=== PATIENT | female | born 1995 | race Caucasian/White ===

== ENCOUNTER 2017-12-01 10:50 | Day surgery (SDC) | payer OTHER, SELFPAY ==
[2017-11-30 09:01] VITALS: BMI 32.5
[2017-12-01] VITALS (10 sets, daily range): BP systolic 90–134; BP diastolic 50–78; PULSE 82–112; RESP 13–17; TEMP 36–36.7; O2SAT 92–100; BMI 32.5
--- NOTE | 2017-12-01 | PATH_ITS ---
[facility] Accession Number: [id number] . 01 Material submitted: . RIGHT INNER THIGH . 02 Diagnosis: Mass, Right Inner Thigh: Lipoma, negative for atypia. [facility] [place]12[place]03/[place] . 02 Electronically signed: . Luis Enrique Townsend MD, Pathologist NPI- [id number] . 01 Gross description: . Received in formalin, labeled right inner thigh lipoma, are multiple pieces of hidalgo-yellow rubbery adipose tissue (5.0 x 2.5 x 1.5 cm in aggregate) with homogenous unremarkable cut surfaces. The tissue is inked black. Casework Manager slice is submitted in cassettes A1 and A2. ([id number]) /[facility] . 02 Pathologist provided ICD-10: D17.23 . 02 CPT . 044571 Performed at: 01 [facility] [address] [id number] MD Jeramy Mijares MD Phone: [phone] Performed at: 02 [facility] [address] [place], [place] [id number] MD Lee Novoa MD Phone: [phone]
[2017-12-01] MEDS: LACTATED RINGERS 1,000 ML 42 ML IV (11:42)
[2017-12-01] MEDS: CEFAZOLIN 2 GM/100 ML FROZ.PIGGY IV (11:44)
--- NOTE | 2017-12-01 12:09 | SUR.OPER ---
Supine on padded OR bed, head on pillow, arms secured on padded arm boards at <90 degrees abduction, legs uncrossed, safety belt at thigh, tape over blanket over lower legs.
[2017-12-01] MEDS: LIDOCAINE 1% W/EPI INJ 20 ML INJ (12:14)
[2017-12-01] MEDS: BUPIVACAINE 0.5% (PF) 30 ML VIAL INJ (12:15)
--- NOTE | 2017-12-01 13:05 | PM.OP.1 ---
Operative Date/Time/Diagnoses - Date of procedure: 12/01/17 Time of procedure: 13:05 Pre-op diagnosis: Painful and enlarging right thigh lipoma Post-op diagnosis: same Procedure & Clinicians Procedure: Excision of proximal right thigh lipoma and dermal inclusion cyst Same procedure as scheduled: Yes Indications: Painful and enlarging right thigh lipoma Surgeon: Jazzy Cisneros Anesthesia Type: General (Kotlarczyk) Operative Notes Findings: 3 cm lipoma of the posterior medial right thigh 1 cm dermal inclusion cyst Closure Type: primary Estimated Blood Loss (mL): 10 Procedure in detail: After obtaining informed consent, the patient is brought to the operating room and placed in supine position on the operating table. Following successful induction of general endotracheal anesthesia, appropriate padding of all bony prominences, and placement of appropriate monitors, the right leg was placed in the frogleg position with gel supports medially and laterally to prevent hyper extension. The right groin and posterior thigh are prepped and draped in the standard surgical fashion. A time-out was held per SCOAP protocol. Following infiltration with local anesthetic to create a field block, a horizontal incision was created directly over the palpable lipoma. It was carried down through the skin and subcutaneous tissue. The lipoma was palpated and pushed into the field. It was grasped gently with a Dilan clamp and the neurovascular pedicle was divided using Bovie cautery. The wound was checked for hemostasis and irrigated with warm saline. A prominent dermal lump was noted just anterior to the lipoma. The could be consistent with both a 2nd lipoma or a dermal inclusion cyst. A elliptical incision was created directly over the lump carried down through the skin and subcutaneous tissue. The entire lesion was excised in total and passed from the table as a specimen. Both wounds were checked for hemostasis once again and closed in layers with Vicryl and Monocryl sutures. All sponge, needle, and instrument counts were correct at the conclusion of the case. The patient was allowed to wake from anesthesia without difficulty and taken to the postanesthesia care unit in good condition. Complications: none Condition: stable Disposition: PACU Plan for aftercare: 1. Discharge to home 2. Follow up with me in 2 weeks
[2017-12-01] MEDS: OXYCODONE IR 5 MG TABLET PO (13:43)
--- NOTE | 2017-12-01 14:45 | SUR.PHASEII ---
patient reports HR of greater than 100 at baseline. States she takes adderall and has anxiety, both have been contributing factors. PCM aware. Pt denies dizziness, lightheadedess, racing HR. DC hr 104bpm
== END 2017-12-01 14:40 | disposition home or self-care (01) ==
PROVIDERS: PCP Family Medicine; Visit Provider Surgery
PROC: (CPT 11403; principal; 2017-12-01 13:15)
DX: L72.0 Epidermal cyst (principal); Z87.891 Personal history of nicotine dependence
CPT/HCPCS: 11403; 11401; J0690; J1100; J2250; J2405; J2704; J3010

== ENCOUNTER 2020-03-18 19:29 | Emergency (ER) | payer OTHER, SELFPAY ==
[2020-03-18] VITALS (7 sets, daily range): BP systolic 120–146; BP diastolic 64–87; PULSE 82–96; RESP 20; TEMP 36.4; O2SAT 97–99
--- NOTE | 2020-03-18 19:38 | PC.NURSE ---
Poison control contacted. Spoke to Placido Barrera-- advised
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
[2020-03-18] MEDS: TETRACAINE/BENZOCAINE/BUTAMBEN (CETACAINE) BOTTLE 1 SPRAY TOP (21:19)
== END 2020-03-18 21:35 | disposition home or self-care (01) ==
PROVIDERS: Emergency Provider Nurse Practitioner; PCP Family Medicine
DX: T59.811A Toxic effect of smoke, accidental (unintentional), initial encounter (principal)
CPT/HCPCS: 71046; 99283

== ENCOUNTER → 2021-01-17 06:51 | Outpatient (CLI) | payer OTHER, SELFPAY ==
[2021-01-17 09:32] LABS: Glucose Fasting 91 mg/dL (70-100)
[2021-01-17 09:39] LABS: Glucose 1 Hour 159 mg/dL (70-170)
[2021-01-17 10:15] LABS: Glucose Tol Interpretation INTERPRETATION
[2021-01-17 10:31] LABS: Glucose 2 Hour 181 mg/dL (70-140)
[2021-01-17 11:27] LABS: Glucose 3 Hour 137 mg/dL (70-115)
== END ==
PROVIDERS: PCP Family Medicine; Referring Provider Nurse Practitioner Obstetrics & Gynecology; Visit Provider Nurse Practitioner Obstetrics & Gynecology
DX: Z13.1 Encounter for screening for diabetes mellitus (principal)
CPT/HCPCS: 36415; 82951; 82952

== ENCOUNTER → 2021-01-24 09:07 | Outpatient (CLI) | payer OTHER, SELFPAY ==
--- NOTE | 2021-01-24 | DI.US.S_ITS ---
PROCEDURE: US OB >= 14 WEEKS FETUS INDICATIONS: 20 WEEK ANATOMY OUTSIDE/PRIOR DATING DATA: Last menstrual period (LMP): 09/02/2020. LMP-based estimated date of delivery (JAY): 06/09/2021 . First dating scan (date and location): 01/24/2021 . Estimated date of delivery (JAY) from first dating scan: 06/08/2021 . TECHNIQUE: Real-time scanning was performed of the fetus, with image documentation and biometric measurements. Endovaginal scanning: No COMPARISON: None. FINDINGS: General: A single living intrauterine gestation is present. Presentation: Vertex. Placenta: Placental position is posterior , without previa. Amniotic fluid index: 13.8 cm, normal range is 5-24 cm. heart rate: 160 beats per minute. Maternal cervical canal: 3.3 cm long. Normal lower limit is 2.5 cm. biometrics: Biparietal diameter: 20 weeks 3 days Head circumference: 20 weeks 6 days Abdominal circumference: 20 weeks 6 days Femur length: 20 weeks 6 days Estimated gestational age from initial scan: not applicable. Composite gestational age from present scan: 20 weeks 5 days Estimated weight and percentile: 380 g; 68th percentile Measurement variability for biometric dating: +/- 7 days from 14 weeks to 15 weeks 6 days gestation, +/- 10 days from 16 weeks to 21 weeks 6 days gestation, +/- 2 weeks from 22 weeks to 27 weeks 6 days gestation, +/- 3 weeks for 28 weeks gestation or later. weight reference: 4500 g or EFW >90/95% is considered macrosomia or large for gestational age. EFW <10% is small for gestational age. EFW 5% or less is considered intra-uterine growth restriction. Anatomic survey: Neuro: Ventricles are non-dilated at less than 10 mm. Cisterna magna is normal at 3-11 mm. Cerebellum is normal in size and morphology. Nuchal skin fold: Normal at less than 6 mm between 14-21 weeks gestational age. Face: Nose and lips, facial profile are normal. Spine: No evidence for spina bifida. Heart: 4-chambered heart is present, with normal ventricular outflow tracts. Diaphragm: Diaphragm is intact. Stomach: Left-sided stomach is present. Kidneys: No hydronephrosis. Normal is less than 5 mm in 2nd trimester, less than 7 mm in 3rd trimester. Cord: 3-vessel cord has orthotopic insertion. Bladder: Normal in size. Extremities: All 4 extremities identified. IMPRESSION: 1. 20 week 5 day single living IUP corresponding to ultrasound JAY of 06/08/2021. 2. Normal anatomic survey. Dictated by: Robert MORAELS Interpreted: Chuy Leavitt MD on 01/24/2021 at 11:39 Transcribed by: YUE on 01/24/2021 at 11:41 Approved by: Chuy Leavitt M.D. on 01/24/2021 at 12:06
== END ==
PROVIDERS: PCP Family Medicine; Referring Provider Nurse Practitioner Obstetrics & Gynecology; Visit Provider Nurse Practitioner Obstetrics & Gynecology
DX: Z3A.20 20 weeks gestation of pregnancy; Z36.89 Encounter for other specified antenatal screening
CPT/HCPCS: 76811

== ENCOUNTER → 2021-03-14 08:34 | Outpatient (CLI) | payer OTHER, SELFPAY ==
[2021-03-14 09:15] LABS: Hematocrit 35.5 % (36-46); Hemoglobin 11.8 g/dL (12.0-16.0); Mean Corpuscular HGB Conc 33.3 % (30-36); Mean Corpuscular Hemoglobin 29.2 PG (26-34); Mean Corpuscular Volume 87.8 fL (80-100); Platelet Count 297 X10^3/uL (150-400); Red Blood Cell Count 4.04 X10^6/uL (4.0-5.2); Red Cell Distribution Width 13.6 % (11.6-14.8); White Blood Cell Count 14.2 X10^3/uL (4.5-11.0)
[2021-03-14 09:57] LABS: Glucose Fasting 97 mg/dL (70-100)
[2021-03-14 11:50] LABS: Glucose 2 Hour 152 mg/dL (70-140)
[2021-03-14 12:00] LABS: Glucose 1 Hour 175 mg/dL (70-170)
[2021-03-14 14:38] LABS: Glucose 3 Hour 98 mg/dL (70-115); Glucose Tol Interpretation INTERPRETATION
== END ==
PROVIDERS: PCP Family Medicine; Referring Provider Nurse Practitioner Obstetrics & Gynecology; Visit Provider Nurse Practitioner Obstetrics & Gynecology
DX: Z34.90 Encounter for supervision of normal pregnancy, unspecified, unspecified trimester (principal); Z13.1 Encounter for screening for diabetes mellitus; Z3A.26 26 weeks gestation of pregnancy
CPT/HCPCS: 36415; 82951; 82952; 85027

== ENCOUNTER → 2021-05-14 14:50 | Outpatient (ROUT) | payer OTHER, SELFPAY | PROVIDERS: PCP Family Medicine; Visit Provider Nurse Practitioner Obstetrics & Gynecology | DX: Z34.90 Encounter for supervision of normal pregnancy, unspecified, unspecified trimester (principal); Z36.85 Encounter for antenatal screening for Streptococcus B; Z3A.36 36 weeks gestation of pregnancy | CPT/HCPCS: 87081 ==

== ENCOUNTER 2021-05-17 11:32 | Inpatient (IN) | payer OTHER, SELFPAY ==
[2021-05-17 11:44] VITALS: BP 127/73; PULSE 72; RESP 20; TEMP 37
--- NOTE | 2021-05-17 12:11 | P.HPOB_ITS ---
OB HPI Date/Time Date of admission: 05/17/21 Date Patient Seen: 05/17/21 Time Patient Seen: 12:00 History of Present Condition Chief complaint: Eval of Labor : 1 Para: 0 Estimated Date of Delivery: 06/11/21 Estimated Gestational Age (weeks): 36.3 Narrative: Priya Goodman is a 25 year old at 36 weeks 3 days by sure LMP, IUI date 09/13/20 and concordant early US. Here for evaluation of labor. PPROM on 05/16 at 2315, clear fluid. No vaginal bleeding, fever/chills, or regular, painful contractions overnight. Feels regular movement. Desires low intervention, unmedicated . course significant for history of insulin restistance, on metformin prior to pregnacy, normal 3 hr GTT @ 16 and 26weeks. Otherwise uncomplicated care with CNM. Indications Indication for induction OB: other (PPROM) History of Present care: good care, initiated at week # (9), number of visits (8) and pounds weight gain (8) Dating criteria: LMP confirmed by 1st trimester US Ultrasounds: normal 1st trimester US and normal mid trimester US Obstetrical complications: labor Medical complications: psychiatric (Depression, Anxiety, ADHD on Adderall) Preadmission Labs Blood type: O (+) positive -: Antibody screen: negative, Cystic fibrosis screen: negative, GBS status: negative, HBsAG: negative, HIV: negative and RPR/VDLR: negative -: Rubella: not immune HCT: 35.5 HCAB: negative PAP: Normal Cell-free DNA: negative, female 3 hr GTT: 1 hr (175), 2 hr (152) and 3 hr (98) Fasting blood glucose: 97 Evaluation Evaluation Baseline heart rate: 145 Variability: Moderate (11-25) monitor accelerations: Present Monitor Decelerations: Absent Contraction Frequency (minutes): 1 Uterine Contraction Intensity: Mild Status: Category l Dilation (cm): 2.5 Dilation: 1-2 cm Effacement: 60-70% station: -3 Position of cervix: posterior Consistency: soft Oseguera score: 5 Comments: CE deferred, reported from last CE in office, gross ROM PFSH Medical History (Updated 05/17/21 @ 13:57 by Amber Aj CNM) ADHD Anxiety Depression Headache Surgical History [place] teeth removed Family History Grandmother Diabetes mellitus Father Hyperlipidemia Sister Thyroid disease Social History (Updated 05/17/21 @ 13:15 by Amber Aj CNM) marital status: number of children: 0 household members: spouse occupational status: employed Smoking Status: Former smoker alcohol intake: former Meds Home Medications and Allergies Home Medications Medication Instructions Recorded Confirmed Type dextroamphetamine-amphetamine ER 15 mg PO 4XW cap 11/23/17 05/17/21 History 30 mg 24hr capsule,extend release (Adderall XR) PNV Folic Acid + Iron 1 tab PO DAILY 05/17/21 05/17/21 History Vitamin D3 10,000 units PO DAILY 05/17/21 05/17/21 History metformin 500 mg tablet,extended 500 mg PO TID 05/17/21 05/17/21 History release 24 hr sertraline 100 mg tablet 100 mg PO DAILY 05/17/21 05/17/21 History Allergies Allergy/AdvReac Type Severity Reaction Status Date / Time pineapple Allergy Verified 05/17/21 12:55 Review of Systems Review of Systems ROS: Yes All systems reviewed with the patient and are negative except as otherwise documented OB Exam Narrative Exam Narrative: VS: BP 133/84, T 99.4F, HR 91 bpm Resp Effort & Inspection: normal respiratory effort Auscultation: clear to auscultation bilaterally Cardio Rate: regular rate Rhythm: regular rhythm Heart Sounds: S1 normal and S2 normal Extremities Lower extremity: Yes normal to inspection Presentation: vertex Amniotic Fluid: clear Objective Labs Result Diagrams: 05/17/21 12:30 Assessment and Plan Assessment and Plan Assessment and Plan narrative: A: Late nullipara Active management of PPROM SROM/PPROM, clear fluid x 13 hours without signs/symptoms of infection No indication for GBS prophylaxis Cat I FHT P: Admit to hospital with routine orders and induction/augmentation of labor with Pitocin per protocol. OB backup consulted and in agreement with CN management for labor. [facility] Peds provider notified of 36wk PPROM, will notify peds upon delivery, peds to admit for . Encourage ambulation, position changes, and rest PRN. Reassess in 4 hours or sooner PRN. Plan CE 2 hours after strong contractions.
[2021-05-17] MEDS: OXYTOCIN PREMIX 30 UNIT/500 ML PLAST..BAG IV (12:40)
[2021-05-17] MEDS: LACTATED RINGERS 1,000 ML 100 ML IV ×2 (12:42→23:20)
[2021-05-17 12:43] LABS: Add Manual Diff / Slide Review NO; Basophils Absolute Auto 100 /uL (0-100); Basophils Percent Auto 1.3 % (0-2); Eosinophils Absolute Auto 100 /uL (0-450); Hematocrit 35.3 % (36-46); Hemoglobin 11.7 g/dL (12.0-16.0); Lymphocytes Absolute Auto 2100 /uL (1100-4500); Lymphocytes Percent Auto 17.8 % (25-40); Mean Corpuscular HGB Conc 33.1 % (30-36); Mean Corpuscular Hemoglobin 28.9 PG (26-34); Mean Corpuscular Volume 87.2 fL (80-100); Monocytes Absolute Auto 900 /uL (0-900); Monocytes Percent Auto 7.2 % (3-14); Neutrophils Absolute Auto 8700 /uL (1500-7000); Neutrophils Percent Auto 72.7 % (50-75); Platelet Count 208 X10^3/uL (150-400); Red Blood Cell Count 4.05 X10^6/uL (4.0-5.2); Red Cell Distribution Width 13.8 % (11.6-14.8); White Blood Cell Count 11.9 X10^3/uL (4.5-11.0)
[2021-05-17 13:10] LABS: COVID19 -Nasal RAPID Negative (Negative)
[2021-05-17 15:41] VITALS: BP 138/86
[2021-05-17 17:22] VITALS: BP 153/95; PULSE 86
[2021-05-17] MEDS: LABETALOL 20 MG/4 ML SYRINGE 10 MG IV (17:22)
--- NOTE | 2021-05-17 17:22 | PM.OBPNLAB ---
Date/Time Date Patient Seen: 05/17/21 Time Patient Seen: 17:00 Pain Control Pain control: tolerating well (breathing through regular contractions, pain is all low in front) Comments: VS: severe range BPs x 10 minutes (166/93, 160/98, 160/99, 162/100), now 130/77, HR 80bpm, T 98.2F Temporal Pelvic Exam Dilation (cm): 5 Effacement (%): 80 station: -1 Amniotic membrane status: Leaking (clear) Contractions Date/Time contractions began: contraction present upon admission, but mild stronger contractions started at 1500 Monitor mode: External Pitocin rate (mU/min): 11 Contraction frequency (min): 2 Contraction duration (min): 1 Contraction pattern: Regular Contraction intensity: Moderate Status status: Category l Heart Rate Baseline: 150 Monitor Accelerations: Present Monitor Decelerations: Absent Monitor Variability: Moderate Assessment and Plan Assessment: active labor (PPROM x 18 hours thout sx of infection, Severe range BP) Plan: other (Consulted for elevated BPs-> Preeclampsia panel ordered and labetalol 10mg IV given) Comments: Continue pitocin titration, per protocol. Labor support, PRN. BP now stable, will call once labs are resulted. Reassess in 2-4 hours or sooner, PRN.
[2021-05-17 18:27] LABS: Add Manual Diff / Slide Review NO; Basophils Absolute Auto 100 /uL (0-100); Basophils Percent Auto 0.9 % (0-2); Eosinophils Absolute Auto 100 /uL (0-450); Eosinophils Percent Auto 0.7 % (2-4); Hematocrit 35.9 % (36-46); Hemoglobin 12.1 g/dL (12.0-16.0); Lymphocytes Absolute Auto 2600 /uL (1100-4500); Lymphocytes Percent Auto 20.8 % (25-40); Mean Corpuscular HGB Conc 33.8 % (30-36); Mean Corpuscular Hemoglobin 29.1 PG (26-34); Mean Corpuscular Volume 86.1 fL (80-100); Monocytes Absolute Auto 800 /uL (0-900); Monocytes Percent Auto 6.9 % (3-14); Neutrophils Absolute Auto 8700 /uL (1500-7000); Neutrophils Percent Auto 70.7 % (50-75); Platelet Count 208 X10^3/uL (150-400); Red Blood Cell Count 4.17 X10^6/uL (4.0-5.2); White Blood Cell Count 12.3 X10^3/uL (4.5-11.0)
[2021-05-17 18:35] LABS: Aspartate Aminotransferase 19 IU/L (14-36); BUN Creatinine Ratio 26.9 (6-22); Blood Urea Nitrogen 14 mg/dL (7-17); Estimated Glomerular Filt Rate > 60.0 mL/min (>60); Uric Acid 5.6 mg/dL (2.5-6.2)
[2021-05-17 18:53] LABS: Creatinine Urine Random 141.9 mg/dL; Protein (Total) Urine Random 8 mg/dL (0-12); Protein Creatinine Ratio Urine 0.05 GRAM/24H
[2021-05-17 19:36] VITALS: BP 154/94; PULSE 84
[2021-05-17] MEDS: LABETALOL 100 MG TABLET 200 MG PO (19:36)
--- NOTE | 2021-05-17 21:10 | PM.OBPNLAB ---
Date/Time Date Patient Seen: 05/17/21 Time Patient Seen: 21:00 Pain Control Comments: Mandie is comfortable, laboring in tub. Coping well through contractions with Jayne present for support. Pelvic Exam Dilation (cm): 6.5 Effacement (%): 90 station: -1 Amniotic membrane status: Leaking (clear) Comments: No signs/symptoms of infection Contractions Monitor mode: External Pitocin rate (mU/min): 19 Contraction frequency (min): 2 Contraction duration (min): 1 Contraction pattern: Regular Contraction intensity: Moderate Status status: Category l Heart Rate Baseline: 150 Monitor Accelerations: Present Monitor Decelerations: Absent Monitor Variability: Moderate Assessment and Plan Assessment: active labor Plan: other (continue current plan; IV Pitocin per protocol and monitor BP) Comments: Pre-eclampsia panel came back negative, reviewed results and plan with OB backup Dr. Dixon. Started labetaolol 200 mg PO q 8 hr. Will continue to monitor BP closely. Labor support as needed, reassess in 4 hours or sooner PRN.
--- NOTE | 2021-05-18 01:15 | PM.OBPNLAB ---
Date/Time Date Patient Seen: 05/18/21 Time Patient Seen: 01:16 Pain Control Pain control: tolerating well Comments: Coping well, though very tired. Has been resting in bed, now planning to walk. VS: BP 138/82, HR 75bpm, T 36.9C Pelvic Exam Dilation (cm): 7 Effacement (%): 90 station: -1 Amniotic membrane status: Leaking (clear) Comments: ELIZABETH position Contractions Monitor mode: External Pitocin rate (mU/min): 19 Contraction frequency (min): 3 Contraction pattern: Regular Contraction intensity: Moderate Status status: Category l Heart Rate Baseline: 135 Monitor Accelerations: Present Monitor Decelerations: Early and Variable Monitor Variability: Moderate Comments: overall reassuring Assessment and Plan Assessment: active labor Plan: continuous present management Comments: Continue pitocin titration to adequte contractions. Encourage movement and ambulation. Reassess in 2-4 hours. Will consider IUPC if minimal change at next check.
--- NOTE | 2021-05-18 03:25 | PM.OBPNLAB ---
Date/Time Date Patient Seen: 05/18/21 Time Patient Seen: 03:00 Pain Control Pain control: tolerating well Comments: Has been ambulating in her room for the last 2 hours, breathing through stronger contractions. VS: BP 140/82, HR 83bpm, T 36.2C Temporal Pelvic Exam Dilation (cm): 8 Effacement (%): 90 station: -1 Amniotic membrane status: Leaking (clear) Contractions Monitor mode: External Pitocin rate (mU/min): 22 Contraction frequency (min): 2 Contraction duration (min): 1 Contraction pattern: Regular Contraction intensity: Moderate Status status: Category l Heart Rate Baseline: 135 Monitor Accelerations: Present Monitor Decelerations: Absent Monitor Variability: Moderate Assessment and Plan Assessment: active labor Plan: continuous present management Comments: Labor support, PRN. Reassess in 2-4 hours, or sooner, PRN.
[2021-05-18 03:46] VITALS: BP 132/66; PULSE 78
[2021-05-18] MEDS: LABETALOL 100 MG TABLET 200 MG PO (03:46)
--- NOTE | 2021-05-18 05:32 | PM.OBPNLAB ---
Date/Time Date Patient Seen: 05/18/21 Time Patient Seen: 05:33 Pain Control Pain control: epidural Comments: Patient progressed to complete and spontaneously pushing, without anesthesia. Requested epidural while pushing on the toilet. Now comfortable with combined spinal/epidural in place. VS: BP 127/68, HR 88, T 36.3C Temporal Pelvic Exam Dilation (cm): 10 Effacement (%): 90 station: +1 Amniotic membrane status: Leaking (clear) Contractions Monitor mode: External Pitocin rate (mU/min): 22 Contraction frequency (min): 3 Contraction duration (min): 1 Contraction pattern: Regular Contraction intensity: Moderate Status status: Category l Heart Rate Baseline: 125 Monitor Accelerations: Present Monitor Decelerations: Absent Monitor Variability: Moderate Assessment and Plan Assessment: active labor Plan: continuous present management Comments: Recommend 30-60 minutes of rest, then begin coached pushing. Anticipate NSVB.
[2021-05-18] MEDS: LACTATED RINGERS 1,000 ML 100 ML IV ×2 (06:31→06:32)
[2021-05-18] MEDS: CALCIUM CARBONATE 500 MG TAB 1000 MG PO (06:45)
--- NOTE | 2021-05-18 08:20 | PM.OBPRVD ---
Events: Labor < 37 wks, Induced HTN, Labor Induction and Premature Rupture Membrane Labor & Delivery Delivery date: 05/18/21 Intrapartal Events: None Cervical ripening method: none Induction method: per pitocin protocol Delivery augmentation: pitocin Delivery monitor: external FHT and external uterine Route of delivery: Episiotomy description: None L&D Laceration Description: Vaginal - 2nd Degree Delivery repair: chromic (3.0) Estimated blood loss (mL): 100 Anesthesia Type: Spinal and Epidural Narrative: Mandie labored in a variety of positions, presumed to be complete with onset of spontaneous pushing efforts at 0400. Requested epidural anesthesia for pain control, cervical exam confirmed complete prior to epidural/spinal anesthesia at 0445. Once comfortable, pushed in a variety of positions with Cat II FHR tracing with late decelerations. RT paged to be present at delivery. NSVB of viable female at 0741. No nuchal cord, shoulders delivered with ease and no additional maneuvers required, terminal meconium noted. IV Pitocin for AMTSL. placed skin to skin for stimulation on maternal abdomen, cord double clamped and cut by SNM after 2 minutes for additional stimulation and assessment. Cord blood collected. Fundus firm, gentle cord traction applied for AMTSL with spontaneous delivery of intact placenta, 3VC. Perineum intact, second degree vaginal laceration repaired with 3.0 Chromic. QBL 100 mL. Mandie and skin to skin and in stable condition as I left the room. [place] Baby 1: gender: Female Presentation: vertex Position: Right Occiput Anterior Placenta delivery description: Spontaneous Cord Vessel Description: 3 Vessels score (1 min): 8 score (5 min): 9 weight: 2.846 kg Narrative: Peds to admit for late Plan for aftercare: Routine care
[2021-05-18] MEDS: DERMOPLAST SPRAY 20% 60 ML 1 SPRAY TOP (10:59)
[2021-05-18] MEDS: KETOROLAC 30 MG/ML VIAL IV (11:00)
[2021-05-18] MEDS: ACETAMINOPHEN 325 MG TABLET 650 MG PO (17:20)
[2021-05-18] MEDS: IBUPROFEN 600 MG TABLET PO (18:45)
[2021-05-19] MEDS: OXYCODONE IR 5 MG TABLET PO (05:09)
[2021-05-19] MEDS: ACETAMINOPHEN 325 MG TABLET 650 MG PO ×3 (05:10→19:57)
[2021-05-19] MEDS: IBUPROFEN 600 MG TABLET PO ×3 (05:11→19:57)
--- NOTE | 2021-05-19 08:18 | PM.OBPN.1 ---
Subjective - OB Subjective Patient comments: pain well controlled [place] baby status: doing well feeding status: exclusively breast feeding Date Patient Seen: 05/19/21 Time Patient Seen: 08:00 Interval history: Mandie is sitting up in bed, attempting to breastfeed her daughter. Has been voiding and ambulating independently. Vaginal bleeding is not heavy. Pain is well controlled with PO medication. , Tania, is present and supportive. Sertraline was missed last night and she went ahead and took her own this morning. They have been struggling to get their baby to wake up and feed last night and this morning. RN currently assisting and IBCLC consultation pending. Exam Vital Signs (past 8 hours): BP 133/81mmHg, HR 76bpm, RR 16/min, T 98.4F Temporal, SpO2 99% on RA Other: Fundus firm @ u, lochia light, no clots, perineum intact Objective Labs Result Diagrams: 05/17/21 18:15 05/17/21 18:15 Assessment & Plan Assessment and Plan (1) Second degree perineal laceration during delivery: Status: Acute Plan day: 1 plan OB: routine care Comments: Will continue to provide support and assistance with throughout the day and reeevaluate. Time Spent With Patient Time: Total time spent is greater than 50% in coordination of care (as documented) at patient's floor/unit and/or counseling patient: Time with patient: 15-24 minutes
[2021-05-19] MEDS: SERTRALINE 50 MG TABLET 150 MG PO (23:12)
[2021-05-20] MEDS: IBUPROFEN 600 MG TABLET PO ×3 (02:05→15:26)
[2021-05-20] MEDS: ACETAMINOPHEN 325 MG TABLET 650 MG PO ×3 (02:05→15:25)
[2021-05-20] MEDS: OXYCODONE IR 5 MG TABLET PO ×3 (02:06→15:26)
--- NOTE | 2021-05-20 08:19 | P.DS_ITS ---
Discharge Providers Provider Date of admission: 05/17/21 11:32 Discharge Date: 05/20/21 Primary care physician: Christian Olmos MD Consults: 05/17/21 11:46 Consult to Anesthesiology Urgent Comment: Consulting Provider: Paulina Bojorquez Reason for consultation: if requested Has provider been notified: No 05/19/21 06:26 Consult to Construction Sales Representative Routine Comment: Discharge provider: Amber Aj CNM Summary Hospital Course Date Patient Seen: 05/20/21 Time Patient Seen: 08:19 Diagnoses: o70.1 Hospital Course: Patient is voiding ambulating and pumping and syringe feeding independently. Pain is well controlled w/ PO medication. She is tolerating a general diet. Vaginal bleeding is decreasing, no clots. Feeling ready for discharge to home today. Has a home BP cuff and feels confident chacking home BPs. Peripartum Data Delivery Method: Natural Vaginal Laceration Description: Vaginal - 2nd Degree Episiotomy description: Midline complications: none [place] 1: Gender: Female Disposition of : home Discharge Diagnosis (1) Second degree perineal laceration during delivery: Start Date: 05/18/21 Start Time: 07:41 Status: Acute (2) Gestational hypertension: Start Date: 05/17/21 Status: Acute Problem Details: consulted in labor and prior to discharge. Plan to check home BPs and call if BP >160 systolic and/or 110 diastolic. Warning sx reviewed with patient and her . Status at Discharge Cognitive/behavioral status at discharge: oriented and calm Functional status at discharge: independent ambulation Overall status at discharge: patient is progressing back to baseline Time Spent with Patient Time attestation: Total time spent providing and/or coordinating discharge services: Time spent: Less than 30 minutes Objective Labs Result Diagrams: 05/17/21 18:15 05/17/21 18:15 Exam Vital Signs (past 8 hours): BP 141/87mmHg, HR 83bpm, T 98.0 Other: Fundus firm @ u, lochia scant, perineum intact Discharge Plan Discharge Plan Patient Disposition: Home Discharge orders & Medications Prescriptions: New acetaminophen 325 mg Tablet 650 mg PO Q6HR PRN (Reason: Pain, Mild (1-3)) 14 Days Qty: 60 0RF ibuprofen 600 mg Tablet 600 mg PO Q6HR PRN (Reason: Pain, Mild (1-3)) 14 Days Qty: 60 0RF oxycodone 5 mg Tablet 5 mg PO Q4HR PRN (Reason: Pain, Moderate (4-6)) 5 Days Qty: 10 0RF sertraline [Zoloft] 50 mg Tablet 150 mg PO BEDTIME 90 Days Qty: 90 0RF Continued dextroamphetamine-amphetamine [Adderall XR] 30 mg capsule,extended release 24hr 15 mg PO 4XW 0RF metformin 500 mg tablet extended release 24 hr 500 mg PO TID 0RF PNV Folic Acid + Iron 1 tab PO DAILY 0RF Vitamin D3 10,000 units PO DAILY 0RF Discontinued sertraline 100 mg tablet 100 mg PO DAILY 0RF Follow up/Referrals: Amber Aj CNM [[employer]] - (Follow-up 06/02/21 @ 0945 by Telehealth Follow-up Wednesday06/30/21 @ 0945 in office) Christian Olmos MD [Primary Care Provider] - Diet/Activity/Treatments Diet: Regular Activity: pelvic rest x 6 weeks Other treatments: Home BPs in am and pm x 2 weeks Skin/Wound/Dressing Care Report to your healthcare provider any signs of infection, such as:: chills, fever, increased pain, unusual drainage and unusual redness Visit Report/Discharge Packet Instructions: Depression Discharge Data Primary Care Provider: Christian Olmos
[2021-05-20 09:20] VITALS: TEMP 36.7
[2021-05-20 09:21] VITALS: TEMP 36.7
[2021-05-20 09:23] VITALS: TEMP 36.7
[2021-05-20 15:26] VITALS: TEMP 36.6
[2021-05-20] MEDS: MEASLES,MUMPS,RUBELLA VACC/PF 0.5 ML VIAL SUBCUT (15:42)
== END 2021-05-20 16:00 | disposition home or self-care (01) | DRG 807 ==
PROVIDERS: Admitting Provider Nurse Practitioner Obstetrics & Gynecology; PCP Family Medicine; Referring Provider Nurse Practitioner Obstetrics & Gynecology; Visit Provider Nurse Practitioner Obstetrics & Gynecology
DX: O60.14X0 Preterm labor third trimester with preterm delivery third trimester, not applicable or unspecified (principal); Z37.0 Single live birth; Z3A.36 36 weeks gestation of pregnancy; O70.1 Second degree perineal laceration during delivery; O77.0 Labor and delivery complicated by meconium in amniotic fluid; O13.4 Gestational [pregnancy-induced] hypertension without significant proteinuria, complicating childbirth; O99.344 Other mental disorders complicating childbirth; F41.9 Anxiety disorder, unspecified; F32.9 Major depressive disorder, single episode, unspecified; O99.284 Endocrine, nutritional and metabolic diseases complicating childbirth; E88.81 Metabolic syndrome and other insulin resistance; Z79.4 Long term (current) use of insulin; Z20.822 Contact with and (suspected) exposure to COVID-19
CPT/HCPCS: 01967; 36415; 59050; 82570; 84156; 84450; 84550; 85025; 86850; 86900; 86901; 87635; C9803; G0379; J1885; J2590

== ENCOUNTER → 2023-10-06 06:54 | Outpatient (CLI) | payer OTHER, SELFPAY ==
[2023-10-06 08:36] LABS: Glucose Fasting 107 mg/dL (70-100)
[2023-10-06 08:51] LABS: Glucose 1 Hour 184 mg/dL (70-170)
[2023-10-06 09:25] LABS: Glucose Tol Interpretation INTERPRETATION
[2023-10-06 10:44] LABS: Glucose 2 Hour 181 mg/dL (70-140)
== END ==
LOC: LAB 06:57
PROVIDERS: PCP Family Medicine; Referring Provider Nurse Practitioner Obstetrics & Gynecology; Visit Provider Nurse Practitioner Obstetrics & Gynecology
DX: Z34.90 Encounter for supervision of normal pregnancy, unspecified, unspecified trimester (principal); Z13.1 Encounter for screening for diabetes mellitus; Z3A.16 16 weeks gestation of pregnancy
CPT/HCPCS: 36415; 82951; 82952

== ENCOUNTER → 2023-11-15 12:37 | Outpatient (CLI) | payer OTHER, SELFPAY ==
--- NOTE | 2023-11-15 12:39 | DI.US.S_ITS ---
PROCEDURE: US OB >= 14 WEEKS FETUS INDICATIONS: ANATOMY SCAN OUTSIDE/PRIOR DATING DATA: Last menstrual period (LMP): June 27, 2023. LMP-based estimated date of delivery (JAY): April 02, 2024. TECHNIQUE: Real-time scanning was performed of the fetus, with image documentation and biometric measurements. Endovaginal scanning: Not performed COMPARISON: None FINDINGS: General: A single living intrauterine gestation is present. Presentation: Vertex. Placenta: Placental position is posterior , without previa. Amniotic fluid index: 14.8 cm, normal range is 5-24 cm. Single deepest vertical pocket is 4.6 cm. heart rate: 160 beats per minute. Maternal cervical canal: 3.8 cm long. Normal lower limit is 2.5 cm. biometrics: Biparietal diameter: 4.4 cm, 19 weeks and 3 days Head circumference: 17.3 cm, 19 weeks and 6 days Abdominal circumference: 13.9 cm, 19 weeks and 2 days Femur length: 3.5 cm, 21 weeks and 0 days Clinically estimated gestational age: 20 weeks and 1 day Composite gestational age from present scan: 19 weeks and 6 days Estimated weight and percentile: 331 g which correlates with the 42nd percentile Anatomic survey: Neuro: Ventricles are non-dilated at less than 10 mm. Cisterna magna is normal at 3-11 mm. Cerebellum is normal in size and morphology. Nuchal skin fold: Normal at less than 6 mm between 14-21 weeks gestational age. Face: Nose and lips, facial profile are normal. Spine: No evidence for spina bifida. Heart: 4-chambered heart is present, with normal ventricular outflow tracts. Diaphragm: Diaphragm is intact. Stomach: Left-sided stomach is present. Kidneys: No hydronephrosis. Normal is less than 5 mm in 2nd trimester, less than 7 mm in 3rd trimester. Cord: 3-vessel cord has orthotopic insertion. Bladder: Normal in size. Extremities: All 4 extremities identified. IMPRESSION: Single living intrauterine gestation with estimated sonographic gestational age of approximately 19 weeks and 6 days which measures concordant with estimated gestational age by last menstrual period of approximately the 20 weeks and 1 day. Normal routine second-trimester anatomy screening survey. We strive to produce accurate, complete, and clear reports of imaging services. To assist us in improving patient care, this report was composed using standard report templates and voice recognition software. Therefore, it may contain abnormal punctuation, insertions and/or omissions. Occasional wrong-word or sound-alike substitutions may occur. Though we review the report and make efforts to correct it, we do recommend that the report be read carefully in proper context to recognize any text inaccuracies. Dictated by: Gopal Carlos M.D. on 11/15/2023 at 18:15 Approved by: Gopal Carlos M.D. on 11/15/2023 at 18:19
== END ==
PROVIDERS: PCP Family Medicine; Referring Provider Nurse Practitioner Obstetrics & Gynecology; Visit Provider Nurse Practitioner Obstetrics & Gynecology
DX: O09.92 Supervision of high risk pregnancy, unspecified, second trimester; Z3A.19 19 weeks gestation of pregnancy
CPT/HCPCS: 76811

== ENCOUNTER → 2024-02-14 19:17 | Outpatient (ROUT) | payer OTHER, SELFPAY ==
[2024-02-14 19:29] LABS: Alanine Aminotransferase 11 IU/L (<35); Albumin 3.4 g/dL (3.5-5.0); Albumin Globulin Ratio 1.3 (1.0-2.8); Alkaline Phosphatase 169 U/L (38-126); Aspartate Aminotransferase 15 IU/L (14-36); Bilirubin Total 0.2 mg/dL (0.2-1.3); Globulin 2.6 g/dL (1.7-4.1); HEMOLYSIS < 15 (0-50)
[2024-02-14 19:44] LABS: Creatinine Urine Random 48.83 mg/dL; Protein (Total) Urine Random 6 mg/dL (0-12); Protein Creatinine Ratio Urine 0.12 GRAM/24H
== END ==
PROVIDERS: Family Provider Family Medicine; PCP Family Medicine; Visit Provider Nurse Practitioner Obstetrics & Gynecology
DX: Z34.93 Encounter for supervision of normal pregnancy, unspecified, third trimester (principal); R03.0 Elevated blood-pressure reading, without diagnosis of hypertension
CPT/HCPCS: 80076; 82570; 84156

== ENCOUNTER → 2024-02-29 13:37 | Outpatient (CLI) | payer OTHER, SELFPAY ==
--- NOTE | 2024-02-29 13:39 | DI.US.S_ITS ---
PROCEDURE: US OB >= 14 WEEKS FETUS INDICATIONS: ANATOMY SCAN OUTSIDE/PRIOR DATING DATA: Last menstrual period (LMP): 06/27/2023. LMP-based estimated date of delivery (JAY): 04/02/2024. First dating scan (date and location): Un known. Estimated date of delivery (JAY) from first dating scan: unknown The calculations are made using the clinical JAY of 04/02/2024. TECHNIQUE: Real-time scanning was performed of the fetus, with image documentation and biometric measurements. COMPARISON: [facility], OB >= 14 WEEKS FETUS, 11/15/2023, 12:57. FINDINGS: General: A single living intrauterine gestation is present. Presentation: Vertex. Placenta: Placental position is posterior , without previa. Amniotic fluid index: 12.9 cm, normal range is 5-24 cm. Single deepest vertical pocket is 4.5 cm. heart rate: 153 beats per minute. Maternal cervical canal: 3.8 cm long. Normal lower limit is 2.5 cm. biometrics: Biparietal diameter: 8.5 cm 35 weeks 0 days Head circumference: 31.1 cm 34 weeks 5 days Abdominal circumference: 32 0.1 cm 36 weeks 0 days Femur length: 6.9 cm 35 weeks 2 days Clinically estimated gestational age: 35 weeks 2 days Composite gestational age from present scan: 35 weeks 0 days Estimated weight and percentile: 2680 g 54th percentile IMPRESSION: Single live intrauterine with gestational age today of 35 weeks 0 days. LEE is within normal limits. We strive to produce accurate, complete, and clear reports of imaging services. To assist us in improving patient care, this report was composed using standard report templates and voice recognition software. Therefore, it may contain abnormal punctuation, insertions and/or omissions. Occasional wrong-word or sound-alike substitutions may occur. Though we review the report and make efforts to correct it, we do recommend that the report be read carefully in proper context to recognize any text inaccuracies. Dictated by: Minal Kuhn M.D. on 02/29/2024 at 20:07 Approved by: Minal Kuhn M.D. on 02/29/2024 at 20:09
== END ==
PROVIDERS: Family Provider Family Medicine; PCP Registered Nurse; Referring Provider Advanced Practice Midwife; Visit Provider Advanced Practice Midwife
DX: O16.5 Unspecified maternal hypertension, complicating the puerperium (principal); O24.439 Gestational diabetes mellitus in the puerperium, unspecified control; O09.93 Supervision of high risk pregnancy, unspecified, third trimester; Z3A.35 35 weeks gestation of pregnancy
CPT/HCPCS: 76815

== ENCOUNTER 2024-03-01 14:30 | Outpatient (RCR) | payer OTHER, SELFPAY ==
--- NOTE | 2024-02-02 15:45 | PT.OIE ---
Current Diagnoses Stiffness of right hip, not elsewhere classified (02/02/24) Stiffness of left hip, not elsewhere classified (02/02/24) Sacroiliitis, not elsewhere classified (02/02/24) Low back pain, unspecified (02/02/24) Pelvic and perineal pain (02/02/24) Weakness (02/02/24) Past Medical History (Last Updated 05/17/21 @ 13:57 by Amber Aj CNM) ADHD Anxiety Depression Headache Past Surgical History (Last Reviewed 05/17/21 @ 17:19 by Amber Aj CNM) [place] teeth removed Visit Care Team Role Provider Type Christian Olmos MD Family Provider Physician Primary Care Provider Specialty: Family Practice Address: [address] [place] [address], [facility] Email: [email or web address] Anne Mercedes CNM, PROFESSIONAL WRESTLER Attending Provider Advanced Scouring Machine Tender Referring Provider Specialty: PARLOR CHAPERONE Address: [address] [place] [address], [id number] Email: [email or web address] Physical Therapy Initial Evaluation PT-OP-A Visit Information Start: 02/02/24 13:27 Freq: Status: Active Protocol: Document 02/02/24 14:30 NM (Rec: 02/02/24 15:51 NM [id number]) Out-Patient Physical Therapy Visit Information Visit Information Visit Type Initial Evaluation Visit Note allergy to adhesive/tape Mandie Visit Start Time 14:30 Visit Stop Time 15:15 Visit Number 1 Evaluation Information Evaluation Date 02/02/24 Precautions Precautions Currently (due late March) allergy to adhesives PT-OP-B Current Condition Start: 02/02/24 13:27 Freq: Status: Active Protocol: Document 02/02/24 14:30 NM (Rec: 02/02/24 15:51 NM [id number]) Current Condition History of Current Condition Onset Date since Current Complaints pain History of Current Condition Pt, Mandie, presents with B SIJ pain (R>L), in addition to pubic bone pain. She is currently 31 weeks , due in March. States 2nd baby, but did not have any problems. Pt reports difficulty with ambulating. 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 She states that ambulating helps the SIJ pain but not pubic pain. She reports that the chairs at work contribute to her pain (sits slumped, with feet elevated due to swelling and leg crossing). She is not wearing a belt for SIJ pain. Worse with rolling at night, keeping legs together more (worse w/ separation). First child is toddler. She is planning to work up until labor. She has been working w/ her to help with SIJ pain (cla, stretch). She has yoga ball. Will be starting non-stress testing. Prior Treatments and Tests None for SIJ pain PT-OP-C Subjective Start: 02/02/24 13:27 Freq: Status: Active Protocol: Document 02/02/24 14:30 NM (Rec: 02/02/24 15:51 NM [id number]) OP-PT Subjective Patient Comments Patient Comments Pt consents to participate in evaluation Patient Questionnaires Oswestry Low Back Index Oswestry Score 15/50 OP-PT Pain Assessment Location SIJ Pain Location Details R>L Intensity 6 Scale Used Numeric (0 - 10) Description Aching,Sharp Frequency Frequent Variations/Patterns pubic pain- night mainly Pain Aggravating Factors Activity,Exercise,Standing, Sitting,Walking Other Pain Aggravating Factors sleeps on back (side > back) Pain Alleviating Factors Lying Supine,Exercise PT-OP-F Manual Assessment Start: 02/02/24 13:27 Freq: Status: Active Protocol: Document 02/02/24 14:30 NM (Rec: 02/02/24 15:51 NM [id number]) Manual Assessments Soft Tissue Assessment Soft Tissue Mobility Assessment Decreased hip flexor length, increased hamstring length Joint Mobility Assessment Joint Mobility Assessment Hypermobility of B SIJ; limitations in hip ROM due to PT-OP-G Mobility & Gait Start: 02/02/24 13:27 Freq: Status: Active Protocol: Document 02/02/24 14:30 NM (Rec: 02/02/24 15:51 NM [id number]) OP Gait Assessment Gait Distance (Feet) 150 Comments Gait Comments Antalgic gait. Demos wider based stance with B hip ER, R> L, slight posterior lean of trunk PT-OP-J Posture/Palpation/Skin Start: 02/02/24 13:27 Freq: Status: Active Protocol: Document 02/02/24 14:30 NM (Rec: 02/02/24 15:51 NM [id number]) Posture Evaluation Position Standing Head/C-Spine Posture Forward Head L-Spine Posture Increased Lordosis Pelvis Posture Anteriorly Tilted Hip Posture (L) Externally Rotated,(R) Externally Rotated Knee Posture (L) Genu Valgus,(R) Genu Valgus Ankle/Foot Posture (L) Pronated,(R) Pronated Palpation Assessment Location SIJ Palpation Details Tenderness with palpation along R SIJ (moderate), none along L SIJ No tenderness or notable displacement of coccyx or pubic symphysis PT-OP-K Range of Motion Start: 02/02/24 13:27 Freq: Status: Active Protocol: Document 02/02/24 14:30 NM (Rec: 02/02/24 15:51 NM [id number]) Lumbar Spine Range of Motion Lumbar Spine Active Percentage Flexion 100 Extension 100 Rotation Left 100 Rotation Right 100 Lateral Flexion Left 100 Lateral Flexion Right 100 Hip Goniometric Range of Motion Hip Right Flexion w/Knee Flexed 100 Internal Rotation 40 External Rotation 28 Left Flexion w/Knee Flexed 100 Internal Rotation 45 External Rotation 28 PT-OP-L Special Tests Start: 02/02/24 13:27 Freq: Status: Active Protocol: Document 02/02/24 14:30 NM (Rec: 02/02/24 15:51 NM [id number]) Special Tests Lumbar Spine Special Tests Active SLR Test Results + Comments B Boucher/quadrant Test Results - Hip Special Tests Truong test Test Results + B PT-OP-M Strength Start: 02/02/24 13:27 Freq: Status: Active Protocol: Document 02/02/24 14:30 NM (Rec: 02/02/24 15:51 NM [id number]) Trunk Strength Trunk Manual Muscle Testing Flexion 4 Good Extension 4 Good Rotation Left 4 Good Rotation Right 4 Good Lateral Flexion Left 4 Good Lateral Flexion Right 4 Good Hip Strength Hip Manual Muscle Testing Right Flexion (L2) 4 Good Extension (S1) 4- Good- Abduction 4- Good- Adduction 4 Good External Rotation 4 Good Internal Rotation 4 Good Left Flexion (L2) 4 Good Extension (S1) 4- Good- Abduction 4- Good- Adduction 4 Good External Rotation 4 Good Internal Rotation 4 Good Knee Strength Knee Manual Muscle Testing Right Flexion (S2) 4 Good Extension (L3) 4 Good Left Flexion (S2) 4 Good Extension (L3) 4 Good PT-OP-Q Treatments Start: 02/02/24 13:27 Freq: Status: Active Protocol: Document 02/02/24 14:30 NM (Rec: 02/02/24 15:51 NM [id number]) Therapeutic Exercises Supine Exercises bridge Supine Exercise Name with ABD (HEP) Side bilateral Resistance level 1 band at thighs Equipment Used cued for ppt and abdominal bracing Reps/Minutes 10 Comments edu to perform with ABD if no pubic pain hip ADD Supine Exercise Name HEP Side bilateral Equipment Used small orange ball between knees Reps/Minutes 10 with 5 ea Comments pain free; edu to perform if pubic pain Sitting Exercises hip flexor stretch Sitting Exercise Name HEP Side bilateral Equipment Used 65 cm ivorian ball Reps/Minutes 2x60 Comments R>L; pain free; edu to perform if no pubic pain STS Sitting Exercise Name HEP Side bilateral Resistance level 1 band at thighs Equipment Used cued for anterior WS but requires hand support for assistance Reps/Minutes 10 Comments edu to perform if at work to reduce sitting position Self-Care/Home Management Treatment Education Patient Education Joint Protection,Pain Management Other Education Educated on use of SIJ or belt to reduce pain levels PT-OP-T Assessment and Plan Start: 02/02/24 13:27 Freq: Status: Active Protocol: Document 02/02/24 14:30 NM (Rec: 02/02/24 15:51 NM [id number]) Physical Therapy Assessment Rehab Potential Rehabilitation Potential Good Evaluation Complexity Number of Personal Factors/Comorbidities 1-2 Number of Body Systems Impaired 1-2 Clinical Presentation at Evaluation Evolving Impairments Impairments Activity Tolerance, Coordination,Edema,Functional Activities,Functional Mobility ,Gait,Integument,Pain,Posture, ROM,Sensation,Soft Tissue Mobility,Strength Other Concerns Barriers to Rehabilitation Pt is with hx of early labor (36 weeks), planning to work until in labor and is currently higher risk for early delivery Goals Three Impairment HEP Major Case Detective Goal (LTG) Pt will report compliance with HEP in order to maximize progression with PT and improve symptom management in preparation for LTG Duration 4 weeks Two Impairment body mechanics impaired due to Short Term Goal (STG) Pt will be educated on correct body mechanics to decrease SIJ pain during lifting 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 toddler or baby carrier STG Duration 2 weeks Mcc Goal (LTG) Pt will demonstrate correct body mechanics with good abdominal bracing during at least 5 reps in order to improve safety and decrease pain while lifting 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 female presenting with B SIJ pain related to ligamentous laxity due to . Pt is currently 31 weeks . Pt has hx of coccyx pain s/p fall, and she also currently has pubic symphysis pain intermittently as well. 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 Pt currently has impairments in ROM, strength, pain management, gait, standing tolerance, activity tolerance, sleep, and QOL. Pt demonstrates standard posture associated with , including increased hip flexor tightness and weakness in glutes/hips/core. She demonstrates difficulty with abdominal bracing, and has limitations in hip mobility R>L. Pt responds well to therapeutic exercise targeting SIJ and was issued HEP with variations for work/ home. PT educated pt on exam findings and plan of care. Pt verbalizes agreement. She would benefit from skilled PT to improve activity tolerance and symptom management through flexibility training, strengthening, and body mechanics training. Physical Therapy Plan Frequency and Duration Frequency of Treatment 1x/Week Duration of treatment (weeks) 4 Plan of Care Start Date 02/02/24 Plan of Care End Date 03/03/24 Therapeutic Interventions Therapeutic Interventions Balance Training,Gait Training ,Home Exercise Program,Manual Therapy,Neuromuscular Re- education,Orthotic/Prosthetic Management,Patient/Caregiver Education,Self-Care/Home Management,Sensory Integration ,Soft Tissue Mobilization, Therapeutic Activities, Therapeutic Exercises Other Therapeutic Interventions No taping due to adhesive allergy. No joint mobilizations, pelvic realignment, or modalities due to Next Visit Focus/Plan Next Visit Plan Education on sleeping position , sitting w/ pillow at work Quadruped: rock backs, hip ER/ IR, add resistance band. Core bracing. [place] ball Manual to hip flexors, low back, glutes and SIJ
--- NOTE | 2024-02-02 15:46 | PT.OPPOC ---
Physical, Occupational & Speech Therapy At [facility] Current Diagnoses Stiffness of right hip, not elsewhere classified (02/02/24) Stiffness of left hip, not elsewhere classified (02/02/24) Sacroiliitis, not elsewhere classified (02/02/24) Low back pain, unspecified (02/02/24) Pelvic and perineal pain (02/02/24) Weakness (02/02/24) Visit Care Team Role Provider Type Christian Olmos MD Family Provider Physician Primary Care Provider Specialty: Family Practice Address: [address] [place] [address], [place], [address] Email: [email or web address] Anne Mercedes CNM, VISUAL STYLIST Attending Provider Advanced Top Installer Referring Provider Specialty: LOG HANDLER Address: [address] [place] [address], [id number] Email: [email or web address] Plan Of Care PT-OP-B Current Condition Start: 02/02/24 13:27 Freq: Status: Active Protocol: Document 02/02/24 14:30 NM (Rec: 02/02/24 15:51 NM [id number]) Current Condition History of Current Condition Onset Date since Current Complaints pain History of Current Condition Pt, Mandie, presents with B SIJ pain (R>L), in addition to pubic bone pain. She is currently 31 weeks , due in March. States 2nd baby, but did not have any problems. Pt reports difficulty with ambulating. 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 She states that ambulating helps the SIJ pain but not pubic pain. She reports that the chairs at work contribute to her pain (sits slumped, with feet elevated due to swelling and leg crossing). She is not wearing a belt for SIJ pain. Worse with rolling at night, keeping legs together more (worse w/ separation). First child is toddler. She is planning to work up until labor. She has been working w/ her to help with SIJ pain (clams, stretch). She has yoga ball. Will be starting non-stress testing. Prior Treatments and Tests None for SIJ pain PT-OP-T Assessment and Plan Start: 02/02/24 13:27 Freq: Status: Active Protocol: Document 02/02/24 14:30 NM (Rec: 02/02/24 15:51 NM [id number]) Physical Therapy Assessment Rehab Potential Rehabilitation Potential Good Evaluation Complexity Number of Personal Factors/Comorbidities 1-2 Number of Body Systems Impaired 1-2 Clinical Presentation at Evaluation Evolving Impairments Impairments Activity Tolerance, Coordination,Edema,Functional Activities,Functional Mobility ,Gait,Integument,Pain,Posture, ROM,Sensation,Soft Tissue Mobility,Strength Other Concerns Barriers to Rehabilitation Pt is with hx of early labor (36 weeks), planning to work until in labor and is currently higher risk for early delivery Goals Three Impairment HEP Child And Family Therapist Goal (LTG) Pt will report compliance with HEP in order to maximize progression with PT and improve symptom management in preparation for LTG Duration 4 weeks Two Impairment body mechanics impaired due to Short Term Goal (STG) Pt will be educated on correct body mechanics to decrease SIJ pain during lifting her toddler or baby carrier STG Duration 2 weeks Child And Family Therapist Goal (LTG) Pt will demonstrate correct body mechanics with good abdominal bracing during at least 5 reps in order to improve safety and decrease pain while lifting her toddler or baby carrier LTG Duration 4 weeks One Impairment abdominal bracing limited Short Term Goal (STG) Pt will be educated on core bracing during functional mobility in order to demonstrate increased lumbopelvic stability STG Duration 2 weeks Fpc Goal (LTG) Pt will demonstrate stable abdominal bracing during at least 5/10 reps in order to demonstrate improved core bracing for lumbopelvic stability during functional mobility LTG Duration 4 weeks Assessment Summary Assessment Pt is a 28 y.o. female presenting with B SIJ pain related to ligamentous laxity due to . Pt is currently 31 weeks . Pt has hx of coccyx pain s/p fall, and she also currently has pubic symphysis pain intermittently as well. 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 Pt currently has impairments in ROM, strength, pain management, gait, standing tolerance, activity tolerance, sleep, and QOL. Pt demonstrates standard posture associated with , including increased hip flexor tightness and weakness in glutes/hips/core. She demonstrates difficulty with abdominal bracing, and has limitations in hip mobility R>L. Pt responds well to therapeutic exercise targeting SIJ and was issued HEP with variations for work/ home. PT educated pt on exam findings and plan of care. Pt verbalizes agreement. She would benefit from skilled PT to improve activity tolerance and symptom management through flexibility training, strengthening, and body mechanics training. Physical Therapy Plan Frequency and Duration Frequency of Treatment 1x/Week Duration of treatment (weeks) 4 Plan of Care Start Date 02/02/24 Plan of Care End Date 03/03/24 Therapeutic Interventions Therapeutic Interventions Balance Training,Gait Training ,Home Exercise Program,Manual Therapy,Neuromuscular Re- education,Orthotic/Prosthetic Management,Patient/Caregiver Education,Self-Care/Home Management,Sensory Integration ,Soft Tissue Mobilization, Therapeutic Activities, Therapeutic Exercises Other Therapeutic Interventions No taping due to adhesive allergy. No joint mobilizations, pelvic realignment, or modalities due to Next Visit Focus/Plan Next Visit Plan Education on sleeping position , sitting w/ pillow at work Quadruped: rock backs, hip ER/ IR, add resistance band. Core bracing. Prydeinig ball Manual to hip flexors, low back, glutes and SIJ Plan of Care Dates Plan of Care Start Date 02/02/24 Plan of Care End Date 03/03/24 Electronically Signed by: Mary Ocasio, PT 02/03/24 9137 If you are in agreement with this Plan of Care, please return a signed and dated copy. I have reviewed this Plan of Care and certify that the skilled therapy services above are required to meet the patient?s needs. Physician Signature Date Printed Name and Credentials Clinical Instructor Signature Printed Name and Credentials
--- NOTE | 2024-02-07 14:27 | PT.OTN ---
Current Diagnoses Stiffness of right hip, not elsewhere classified (02/07/24) Stiffness of left hip, not elsewhere classified (02/07/24) Sacroiliitis, not elsewhere classified (02/07/24) Low back pain, unspecified (02/07/24) Pelvic and perineal pain (02/07/24) Weakness (02/07/24) Physical Therapy Treatment Note PT-OP-A Visit Information Start: 02/02/24 13:27 Freq: Status: Active Protocol: Document 02/07/24 13:47 SP (Rec: 02/07/24 14:36 SP [id number]) Out-Patient Physical Therapy Visit Information Visit Information Visit Type Treatment Note Visit Note allergy to adhesive/tape Mandie Visit Start Time 13:47 Visit Stop Time 14:27 Visit Number [address]ER FREIGHT Visits 1 Evaluation Information Evaluation Date 02/02/24 Precautions Precautions Currently (due late March) allergy to adhesives PT-OP-B Current Condition Start: 02/02/24 13:27 Freq: Status: Active Protocol: Document 02/02/24 14:30 NM (Rec: 02/02/24 15:51 NM [id number]) Current Condition History of Current Condition Onset Date since Current Complaints pain History of Current Condition Pt, Mandie, presents with B SIJ pain (R>L), in addition to pubic bone pain. She is currently 31 weeks , due in March. States 2nd baby, but did not have any problems. Pt reports difficulty with ambulating. 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 She states that ambulating helps the SIJ pain but not pubic pain. She reports that the chairs at work contribute to her pain (sits slumped, with feet elevated due to swelling and leg crossing). She is not wearing a belt for SIJ pain. Worse with rolling at night, keeping legs together more (worse w/ separation). First child is toddler. She is planning to work up until labor. She has been working w/ her to help with SIJ pain (clams, stretch). She has yoga ball. Will be starting non-stress testing. Prior Treatments and Tests None for SIJ pain PT-OP-C Subjective Start: 02/02/24 13:27 Freq: Status: Active Protocol: Document 02/07/24 13:47 SP (Rec: 02/07/24 14:36 SP [id number]) OP-PT Subjective Patient Comments Patient Comments Pt is approx 32 weeks 2nd child, reports little soreness R adductor and R SI. Feeling better lately. No issues with HEP. PT-OP-F Manual Assessment Start: 02/02/24 13:27 Freq: Status: Active Protocol: Document 02/02/24 14:30 NM (Rec: 02/02/24 15:51 NM [id number]) Manual Assessments Soft Tissue Assessment Soft Tissue Mobility Assessment Decreased hip flexor length, increased hamstring length Joint Mobility Assessment Joint Mobility Assessment Hypermobility of B SIJ; limitations in hip ROM due to PT-OP-G Mobility & Gait Start: 02/02/24 13:27 Freq: Status: Active Protocol: Document 02/02/24 14:30 NM (Rec: 02/02/24 15:51 NM [id number]) OP Gait Assessment Gait Distance (Feet) 150 Comments Gait Comments Antalgic gait. Demos wider based stance with B hip ER, R> L, slight posterior lean of trunk PT-OP-J Posture/Palpation/Skin Start: 02/02/24 13:27 Freq: Status: Active Protocol: Document 02/02/24 14:30 NM (Rec: 02/02/24 15:51 NM [id number]) Posture Evaluation Position Standing Head/C-Spine Posture Forward Head L-Spine Posture Increased Lordosis Pelvis Posture Anteriorly Tilted Hip Posture (L) Externally Rotated,(R) Externally Rotated Knee Posture (L) Genu Valgus,(R) Genu Valgus Ankle/Foot Posture (L) Pronated,(R) Pronated Palpation Assessment Location SIJ Palpation Details Tenderness with palpation along R SIJ (moderate), none along L SIJ No tenderness or notable displacement of coccyx or pubic symphysis PT-OP-K Range of Motion Start: 02/02/24 13:27 Freq: Status: Active Protocol: Document 02/02/24 14:30 NM (Rec: 02/02/24 15:51 NM [id number]) Lumbar Spine Range of Motion Lumbar Spine Active Percentage Flexion 100 Extension 100 Rotation Left 100 Rotation Right 100 Lateral Flexion Left 100 Lateral Flexion Right 100 Hip Goniometric Range of Motion Hip Right Flexion w/Knee Flexed 100 Internal Rotation 40 External Rotation 28 Left Flexion w/Knee Flexed 100 Internal Rotation 45 External Rotation 28 PT-OP-L Special Tests Start: 02/02/24 13:27 Freq: Status: Active Protocol: Document 02/02/24 14:30 NM (Rec: 02/02/24 15:51 NM [id number]) Special Tests Lumbar Spine Special Tests Active SLR Test Results + Comments B Boucher/quadrant Test Results - Hip Special Tests Truong test Test Results + B PT-OP-M Strength Start: 02/02/24 13:27 Freq: Status: Active Protocol: Document 02/02/24 14:30 NM (Rec: 02/02/24 15:51 NM [id number]) Trunk Strength Trunk Manual Muscle Testing Flexion 4 Good Extension 4 Good Rotation Left 4 Good Rotation Right 4 Good Lateral Flexion Left 4 Good Lateral Flexion Right 4 Good Hip Strength Hip Manual Muscle Testing Right Flexion (L2) 4 Good Extension (S1) 4- Good- Abduction 4- Good- Adduction 4 Good External Rotation 4 Good Internal Rotation 4 Good Left Flexion (L2) 4 Good Extension (S1) 4- Good- Abduction 4- Good- Adduction 4 Good External Rotation 4 Good Internal Rotation 4 Good Knee Strength Knee Manual Muscle Testing Right Flexion (S2) 4 Good Extension (L3) 4 Good Left Flexion (S2) 4 Good Extension (L3) 4 Good PT-OP-Q Treatments Start: 02/02/24 13:27 Freq: Status: Active Protocol: Document 02/07/24 13:47 SP (Rec: 02/07/24 14:36 SP [id number]) Gym Equipment Therapeutic Ball 65cm tball Exercise Details added to HEP- declined HO Ball Size/Color 65 cm tball Body Position seated Reps/Duration 10 reps each Comments 1. pelvic tilts f/b/l 2. august 3. LAQ Therapeutic Exercises Supine Exercises bridge Supine Exercise Name with ABD (HEP) Side bilateral Resistance level 1 band at thighs Equipment Used cued for ppt and abdominal bracing Reps/Minutes 5 SH x10 Comments edu to perform with ABD if no pubic pain Sitting Exercises hip flexor stretch Sitting Exercise Name HEP Side bilateral Equipment Used 65 cm lithuanian ball Reps/Minutes 2x60 Comments R>L tension good stretch; pain free; reviewed no range into pubic pain STS Sitting Exercise Name HEP Side bilateral Resistance level 1 band at thighs Equipment Used no UE support, mesh chair Reps/Minutes 10 Comments cued hip hinge, sit<> stand > progressed to chair taps- felt better Other Exercises quadruped Other Exercise Name 1. UE& LE ext lift/lower Hold 2.sit backs- easy 3. hydrant added to HEP Side bilateral Equipment Used declined HO Reps/Minutes x5 each side Comments 1. Hold ext due to discomfort 3. hydrant better motion & effort stability Manual Therapy Treatment Soft Tissue Mobilization R hip Body Location R glut med, hip ERs Mobilization Type Rolling,Sustained Pressure, Other Body Position L SL Comments rolling, MWM hip clamshell hip flexor Body Location R prox quad, adductor Comments gentle rolling, MFR, sustained pressure MWM hip IR/ ER Self-Care/Home Management Treatment Education Patient Education Body Mechanics,Home Exercise Program,Joint Protection,Pain Management Other Education Ed on pillow positioning to support under head/behind back vs front and between BLEs to allow pelvic and spinal support for comfort . Added quadruped hip IR/ER hydrant, TB sit taps, tball sitting ex PT-OP-T Assessment and Plan Start: 02/02/24 13:27 Freq: Status: Active Protocol: Document 02/07/24 13:47 SP (Rec: 02/07/24 14:36 SP [id number]) Physical Therapy Assessment Goals Three Impairment HEP Retirement Goal (LTG) Pt will report compliance with HEP in order to maximize progression with PT and improve symptom management in preparation for LTG Duration 4 weeks Two Impairment body mechanics impaired due to Short Term Goal (STG) Pt will be educated on correct body mechanics to decrease SIJ pain during lifting her toddler or baby carrier STG Duration 2 weeks Retirement Goal (LTG) Pt will demonstrate correct body mechanics with good abdominal bracing during at least 5 reps in order to improve safety and decrease pain while lifting her toddler or baby carrier LTG Duration 4 weeks One Impairment abdominal bracing limited Short Term Goal (STG) Pt will be educated on core bracing during functional mobility in order to demonstrate increased lumbopelvic stability STG Duration 2 weeks Retirement Goal (LTG) Pt will demonstrate stable abdominal bracing during at least 5/10 reps in order to demonstrate improved core bracing for lumbopelvic stability during functional mobility LTG Duration 4 weeks Assessment Summary Assessment Pt reports little more R hip mobility after manual. Cues for neutral pelvis and gentle pelvic floor draw and form correction as needed during ther ex. Pt reported felt like more supported effort during ther ex and pleased with new resisted STS, updated to bridge holds vs lift lower reps and pelvic ROM and core ex seated on tball for carryover home/work active support. Physical Therapy Plan Frequency and Duration Frequency of Treatment 1x/Week Duration of treatment (weeks) 4 Plan of Care Start Date 02/02/24 Plan of Care End Date 03/03/24 Therapeutic Interventions Therapeutic Interventions Balance Training,Gait Training ,Home Exercise Program,Manual Therapy,Neuromuscular Re- education,Orthotic/Prosthetic Management,Patient/Caregiver Education,Self-Care/Home Management,Sensory Integration ,Soft Tissue Mobilization, Therapeutic Activities, Therapeutic Exercises Other Therapeutic Interventions No taping due to adhesive allergy. No joint mobilizations, pelvic realignment, or modalities due to Next Visit Focus/Plan Next Note Type Treatment Note Next Visit Plan Education on sitting w/ pillow vs tball at work. Quadruped: recheck hip ER/IR ( hydrant?) & [place]ij[place] ball ex. Progress Core bracing & pelvic floor draw in/up. Manual to hip flexors, low back, glutes and SIJ
--- NOTE | 2024-03-01 15:33 | PT.OTN ---
Current Diagnoses Stiffness of right hip, not elsewhere classified (03/01/24) Stiffness of left hip, not elsewhere classified (03/01/24) Sacroiliitis, not elsewhere classified (03/01/24) Low back pain, unspecified (03/01/24) Pelvic and perineal pain (03/01/24) Weakness (03/01/24) Physical Therapy Treatment Note PT-OP-A Visit Information Start: 02/02/24 13:27 Freq: Status: Active Protocol: Document 03/01/24 14:37 NM (Rec: 03/01/24 15:33 NM [id number]) Out-Patient Physical Therapy Visit Information Visit Information Visit Type Discharge Summary Visit Note allergy to adhesive/tape Mandie Visit Start Time 13:37 Visit Stop Time 15:15 Visit Number 3 Evaluation Information Evaluation Date 02/02/24 Precautions Precautions Currently (due late March) allergy to adhesives PT-OP-B Current Condition Start: 02/02/24 13:27 Freq: Status: Active Protocol: Document 02/02/24 14:30 NM (Rec: 02/02/24 15:51 NM [id number]) Current Condition History of Current Condition Onset Date since Current Complaints pain History of Current Condition Pt, Mandie, presents with B SIJ pain (R>L), in addition to pubic bone pain. She is currently 31 weeks , due in March. States 2nd baby, but did not have any problems. Pt reports difficulty with ambulating. 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 She states that ambulating helps the SIJ pain but not pubic pain. She reports that the chairs at work contribute to her pain (sits slumped, with feet elevated due to swelling and leg crossing). She is not wearing a belt for SIJ pain. Worse with rolling at night, keeping legs together more (worse w/ separation). First child is toddler. She is planning to work up until labor. She has been working w/ her to help with SIJ pain (clams, stretch). She has yoga ball. Will be starting non-stress testing. Prior Treatments and Tests None for SIJ pain PT-OP-C Subjective Start: 02/02/24 13:27 Freq: Status: Active Protocol: Document 03/01/24 14:37 NM (Rec: 03/01/24 15:33 NM [id number]) OP-PT Subjective Patient Comments Patient Comments Pt reports less pain overall in her SIJ and pubic symphysis . Reports feels pain only when lying on her back; however, states less pain since initial evaluation. Compliant with HEP. Pt reports that SIJ exercises helped. Pt just scheduled induction. Ready to discharge today PT-OP-F Manual Assessment Start: 02/02/24 13:27 Freq: Status: Active Protocol: Document 02/02/24 14:30 NM (Rec: 02/02/24 15:51 NM [id number]) Manual Assessments Soft Tissue Assessment Soft Tissue Mobility Assessment Decreased hip flexor length, increased hamstring length Joint Mobility Assessment Joint Mobility Assessment Hypermobility of B SIJ; limitations in hip ROM due to PT-OP-G Mobility & Gait Start: 02/02/24 13:27 Freq: Status: Active Protocol: Document 02/02/24 14:30 NM (Rec: 02/02/24 15:51 NM [id number]) OP Gait Assessment Gait Distance (Feet) 150 Comments Gait Comments Antalgic gait. Demos wider based stance with B hip ER, R> L, slight posterior lean of trunk PT-OP-J Posture/Palpation/Skin Start: 02/02/24 13:27 Freq: Status: Active Protocol: Document 02/02/24 14:30 NM (Rec: 02/02/24 15:51 NM [id number]) Posture Evaluation Position Standing Head/C-Spine Posture Forward Head L-Spine Posture Increased Lordosis Pelvis Posture Anteriorly Tilted Hip Posture (L) Externally Rotated,(R) Externally Rotated Knee Posture (L) Genu Valgus,(R) Genu Valgus Ankle/Foot Posture (L) Pronated,(R) Pronated Palpation Assessment Location SIJ Palpation Details Tenderness with palpation along R SIJ (moderate), none along L SIJ No tenderness or notable displacement of coccyx or pubic symphysis PT-OP-K Range of Motion Start: 02/02/24 13:27 Freq: Status: Active Protocol: Document 02/02/24 14:30 NM (Rec: 02/02/24 15:51 NM [id number]) Lumbar Spine Range of Motion Lumbar Spine Active Percentage Flexion 100 Extension 100 Rotation Left 100 Rotation Right 100 Lateral Flexion Left 100 Lateral Flexion Right 100 Hip Goniometric Range of Motion Hip Right Flexion w/Knee Flexed 100 Internal Rotation 40 External Rotation 28 Left Flexion w/Knee Flexed 100 Internal Rotation 45 External Rotation 28 PT-OP-L Special Tests Start: 02/02/24 13:27 Freq: Status: Active Protocol: Document 02/02/24 14:30 NM (Rec: 02/02/24 15:51 NM [id number]) Special Tests Lumbar Spine Special Tests Active SLR Test Results + Comments B Boucher/quadrant Test Results - Hip Special Tests Truong test Test Results + B PT-OP-M Strength Start: 02/02/24 13:27 Freq: Status: Active Protocol: Document 02/02/24 14:30 NM (Rec: 02/02/24 15:51 NM [id number]) Trunk Strength Trunk Manual Muscle Testing Flexion 4 Good Extension 4 Good Rotation Left 4 Good Rotation Right 4 Good Lateral Flexion Left 4 Good Lateral Flexion Right 4 Good Hip Strength Hip Manual Muscle Testing Right Flexion (L2) 4 Good Extension (S1) 4- Good- Abduction 4- Good- Adduction 4 Good External Rotation 4 Good Internal Rotation 4 Good Left Flexion (L2) 4 Good Extension (S1) 4- Good- Abduction 4- Good- Adduction 4 Good External Rotation 4 Good Internal Rotation 4 Good Knee Strength Knee Manual Muscle Testing Right Flexion (S2) 4 Good Extension (L3) 4 Good Left Flexion (S2) 4 Good Extension (L3) 4 Good PT-OP-Q Treatments Start: 02/02/24 13:27 Freq: Status: Active Protocol: Document 03/01/24 14:37 NM (Rec: 03/01/24 15:33 NM [id number]) Therapeutic Exercises Sitting Exercises hip flexor stretch Sitting Exercise Name HEP Side bilateral Equipment Used plinth Reps/Minutes 60 Comments R>L tension good stretch; pain free; reviewed no range into pubic pain Standing Exercises hip ER stretch Side bilateral Equipment Used hip ER w/ leg elevated on plinth Reps/Minutes 60 ea Comments feels really good Other Exercises quadruped Other Exercise Name 1. hip IR, 2. IR rockbacks, 3. ER rockbacks Side bilateral Equipment Used mat on floor Reps/Minutes 1. 2x10, 2. 10x5 hold, 3. 10x5 hold Therapeutic Activity Therapeutic Activity hip hinge Reps/Minutes 10 minutes Comments 1. staggered stance hip hinge to pick out hand ball from lowered surface ~ pick out hand from crib Cued core bracing, staggered stance, rationale for hip hinge. Improved w/ reps 2. squat pick out hand ball from ground~ toddler using hip hinge Good squat form, feels in quad . Improved hip hinge with squat, good core bracing 3. 1/2 kneel pick out hand from ground ~ picking up toddler Uses UE to push up on front leg to stand; cued shift weight and push through heel, improved with reps 4. picking up crate ~baby carrier from elevated surface w/ core bracing Cued for body mechanics including squat/hip hinge, core bracining, and turning body to prevent twisting at spine Manual Therapy Treatment Consent Patient gave verbal consent for manual Yes treatment Soft Tissue Mobilization R hip Body Location B glut med, hip ERs Mobilization Type Rolling,Sustained Pressure, Other Intensity/Depth Superficial Body Position Prone Comments Positioned on body pillow. Monitored throughout for pain or discomfort. Increased restrictions of B glutes especially along glute medius tendon, R>L hip flexor Body Location R prox quad, hip flexors, adductor Intensity/Depth Superficial Body Position Hooklying Comments Monitored for pain and discomfort. Increased restrictions of B hip flexors, dexter R. Performed <5 minutes in this position PT-OP-T Assessment and Plan Start: 02/02/24 13:27 Freq: Status: Active Protocol: Document 03/01/24 14:37 NM (Rec: 03/01/24 15:33 NM [id number]) Physical Therapy Assessment Goals Three Impairment HEP Welder Explosion Goal (LTG) Pt will report compliance with HEP in order to maximize progression with PT and improve symptom management in preparation for 03/01/24: pt reports has been doing exercises every day LTG Duration 4 weeks MET Two Impairment body mechanics impaired due to Short Term Goal (STG) Pt will be educated on correct body mechanics to decrease SIJ pain during lifting her toddler or baby carrier 03/01/24: educated on body mechanics and safety STG Duration 2 weeks Usp Goal (LTG) Pt will demonstrate correct body mechanics with good abdominal bracing during at least 5 reps in order to improve safety and decrease pain while lifting her toddler or baby carrier 03/01/24: Able to perform correct body mechanics with lifting from floor and elevated surface without any SIJ pain and with good form LTG Duration 4 weeks MET One Impairment abdominal bracing limited Short Term Goal (STG) Pt will be educated on core bracing during functional mobility in order to demonstrate increased lumbopelvic stability 03/01/24: educated on core bracing and correct execution STG Duration 2 weeks Usp Goal (LTG) Pt will demonstrate stable abdominal bracing during at least 5/10 reps in order to demonstrate improved core bracing for lumbopelvic stability during functional mobility 03/01/24: pt able to perform good core bracing during squatting, lifting, and carrying without any SIJ pain LTG Duration 4 weeks MET Progress Towards Goals Progress Towards Goals Goals Met Assessment Summary Assessment Pt tolerated session well. Demonstrates observable improvements in hip mobility post exercise and stretching. Continues to have good feedback for gentle soft tissue mobilization. Pt position of comfort still supine but pt positioned in supine for less than 5 minutes and monitored continuously for comfor throughout. Educated pt on body mechanics and core bracing, and initiated during session today . Pt able to perform lifts, carries, and squat pick ups with small resistance without SIJ pain and with good form and good abdominal bracing, requiring cueing initially for correct execution and safety with body mechanics. Pt continues to respond well to stretching. PT and pt discussed discharge today as pt meeting goals, progressing well, and close to term. Pt and PT in agreement. Frequency and Duration Frequency of Treatment 1x/Week Duration of treatment (weeks) 4 Plan of Care Start Date 02/02/24 Plan of Care End Date 03/03/24 Therapeutic Interventions Therapeutic Interventions Balance Training,Gait Training ,Home Exercise Program,Manual Therapy,Neuromuscular Re- education,Orthotic/Prosthetic Management,Patient/Caregiver Education,Self-Care/Home Management,Sensory Integration ,Soft Tissue Mobilization, Therapeutic Activities, Therapeutic Exercises Other Therapeutic Interventions No taping due to adhesive allergy. No joint mobilizations, pelvic realignment, or modalities due to Discharge Physical Therapy Discharge Reasons Goals Met Discharge Comments Pt close to term, end of plan of care, all goals met. Pt and PT discussed discharge to maintenance program for symptom management with pt to stop program before labor. Next Visit Focus/Plan Next Note Type Discharge Summary Next Visit Plan discharge from PT
--- NOTE | 2024-03-01 15:34 | PT.OPDS ---
Current Diagnoses Stiffness of right hip, not elsewhere classified (03/01/24) Stiffness of left hip, not elsewhere classified (03/01/24) Sacroiliitis, not elsewhere classified (03/01/24) Low back pain, unspecified (03/01/24) Pelvic and perineal pain (03/01/24) Weakness (03/01/24) Visit Care Team Role Provider Type Christian Olmos MD Family Provider Physician Primary Care Provider Specialty: Family Practice Address: [address] [place] [address], [facility] [place], [address] Email: [email or web address] Anne Mercedes CNM, ALBA Attending Provider Advanced Set Up Technician Referring Provider Specialty: SEAM CHECKER Address: [address] [place] [address], [id number] Email: [email or web address] Visit Number Visit Number 3 Discharge Summary PT-OP-B Current Condition Start: 02/02/24 13:27 Freq: Status: Active Protocol: Document 02/02/24 14:30 NM (Rec: 02/02/24 15:51 NM [id number]) Current Condition History of Current Condition Onset Date since Current Complaints pain History of Current Condition Pt, Mandie, presents with B SIJ pain (R>L), in addition to pubic bone pain. She is currently 31 weeks , due in March. States 2nd baby, but did not have any problems. Pt reports difficulty with ambulating. 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 She states that ambulating helps the SIJ pain but not pubic pain. She reports that the chairs at work contribute to her pain (sits slumped, with feet elevated due to swelling and leg crossing). She is not wearing a belt for SIJ pain. Worse with rolling at night, keeping legs together more (worse w/ separation). First child is toddler. She is planning to work up until labor. She has been working w/ her to help with SIJ pain (lul, stretch). She has yoga ball. Will be starting non-stress testing. Prior Treatments and Tests None for SIJ pain PT-OP-C Subjective Start: 02/02/24 13:27 Freq: Status: Active Protocol: Document 03/01/24 14:37 NM (Rec: 03/01/24 15:33 NM [id number]) OP-PT Subjective Patient Comments Patient Comments Pt reports less pain overall in her SIJ and pubic symphysis . Reports feels pain only when lying on her back; however, states less pain since initial evaluation. Compliant with HEP. Pt reports that SIJ exercises helped. Pt just scheduled induction. Ready to discharge today PT-OP-F Manual Assessment Start: 02/02/24 13:27 Freq: Status: Active Protocol: Document 02/02/24 14:30 NM (Rec: 02/02/24 15:51 NM [id number]) Manual Assessments Soft Tissue Assessment Soft Tissue Mobility Assessment Decreased hip flexor length, increased hamstring length Joint Mobility Assessment Joint Mobility Assessment Hypermobility of B SIJ; limitations in hip ROM due to PT-OP-G Mobility & Gait Start: 02/02/24 13:27 Freq: Status: Active Protocol: Document 02/02/24 14:30 NM (Rec: 02/02/24 15:51 NM [id number]) OP Gait Assessment Gait Distance (Feet) 150 Comments Gait Comments Antalgic gait. Demos wider based stance with B hip ER, R> L, slight posterior lean of trunk PT-OP-J Posture/Palpation/Skin Start: 02/02/24 13:27 Freq: Status: Active Protocol: Document 02/02/24 14:30 NM (Rec: 02/02/24 15:51 NM [id number]) Posture Evaluation Position Standing Head/C-Spine Posture Forward Head L-Spine Posture Increased Lordosis Pelvis Posture Anteriorly Tilted Hip Posture (L) Externally Rotated,(R) Externally Rotated Knee Posture (L) Genu Valgus,(R) Genu Valgus Ankle/Foot Posture (L) Pronated,(R) Pronated Palpation Assessment Location SIJ Palpation Details Tenderness with palpation along R SIJ (moderate), none along L SIJ No tenderness or notable displacement of coccyx or pubic symphysis PT-OP-K Range of Motion Start: 02/02/24 13:27 Freq: Status: Active Protocol: Document 02/02/24 14:30 NM (Rec: 02/02/24 15:51 NM [id number]) Lumbar Spine Range of Motion Lumbar Spine Active Percentage Flexion 100 Extension 100 Rotation Left 100 Rotation Right 100 Lateral Flexion Left 100 Lateral Flexion Right 100 Hip Goniometric Range of Motion Hip Right Flexion w/Knee Flexed 100 Internal Rotation 40 External Rotation 28 Left Flexion w/Knee Flexed 100 Internal Rotation 45 External Rotation 28 PT-OP-L Special Tests Start: 02/02/24 13:27 Freq: Status: Active Protocol: Document 02/02/24 14:30 NM (Rec: 02/02/24 15:51 NM [id number]) Special Tests Lumbar Spine Special Tests Active SLR Test Results + Comments B Boucher/quadrant Test Results - Hip Special Tests Truong test Test Results + B PT-OP-M Strength Start: 02/02/24 13:27 Freq: Status: Active Protocol: Document 02/02/24 14:30 NM (Rec: 02/02/24 15:51 NM [id number]) Trunk Strength Trunk Manual Muscle Testing Flexion 4 Good Extension 4 Good Rotation Left 4 Good Rotation Right 4 Good Lateral Flexion Left 4 Good Lateral Flexion Right 4 Good Hip Strength Hip Manual Muscle Testing Right Flexion (L2) 4 Good Extension (S1) 4- Good- Abduction 4- Good- Adduction 4 Good External Rotation 4 Good Internal Rotation 4 Good Left Flexion (L2) 4 Good Extension (S1) 4- Good- Abduction 4- Good- Adduction 4 Good External Rotation 4 Good Internal Rotation 4 Good Knee Strength Knee Manual Muscle Testing Right Flexion (S2) 4 Good Extension (L3) 4 Good Left Flexion (S2) 4 Good Extension (L3) 4 Good PT-OP-T Assessment and Plan Start: 02/02/24 13:27 Freq: Status: Active Protocol: Document 03/01/24 14:37 NM (Rec: 03/01/24 15:33 NM [id number]) Physical Therapy Assessment Goals Three Impairment HEP Halfway Goal (LTG) Pt will report compliance with HEP in order to maximize progression with PT and improve symptom management in preparation for 03/01/24: pt reports has been doing exercises every day LTG Duration 4 weeks MET Two Impairment body mechanics impaired due to Short Term Goal (STG) Pt will be educated on correct body mechanics to decrease SIJ pain during lifting her toddler or baby carrier 03/01/24: educated on body mechanics and safety STG Duration 2 weeks Halfway Goal (LTG) Pt will demonstrate correct body mechanics with good abdominal bracing during at least 5 reps in order to improve safety and decrease pain while lifting her toddler or baby carrier 03/01/24: Able to perform correct body mechanics with lifting from floor and elevated surface without any SIJ pain and with good form LTG Duration 4 weeks MET One Impairment abdominal bracing limited Short Term Goal (STG) Pt will be educated on core bracing during functional mobility in order to demonstrate increased lumbopelvic stability 03/01/24: educated on core bracing and correct execution STG Duration 2 weeks Silver Miner Goal (LTG) Pt will demonstrate stable abdominal bracing during at least 5/10 reps in order to demonstrate improved core bracing for lumbopelvic stability during functional mobility 03/01/24: pt able to perform good core bracing during squatting, lifting, and carrying without any SIJ pain LTG Duration 4 weeks MET Progress Towards Goals Progress Towards Goals Goals Met Assessment Summary Assessment Pt has been seen x2 visits since initial evaluation in January 2024 for SIJ and pubic pain. Pt reports overall improvements in symptoms since initial evaluation. She has met all PT goals. Pt limited in ADLs only due to , not due to pain. Mandie has been compliant with HEP. PT educated pt that she can continue with HEP for maintenance up until , then will need to stop until cleared for activity by MD. Pt recommended 3x/wk for HEP in meantime. Pt verbalizes agreement. Physical Therapy Plan Frequency and Duration Frequency of Treatment 1x/Week Duration of treatment (weeks) 4 Plan of Care Start Date 02/02/24 Plan of Care End Date 03/03/24 Therapeutic Interventions Therapeutic Interventions Balance Training,Gait Training ,Home Exercise Program,Manual Therapy,Neuromuscular Re- education,Orthotic/Prosthetic Management,Patient/Caregiver Education,Self-Care/Home Management,Sensory Integration ,Soft Tissue Mobilization, Therapeutic Activities, Therapeutic Exercises Other Therapeutic Interventions No taping due to adhesive allergy. No joint mobilizations, pelvic realignment, or modalities due to Discharge Physical Therapy Discharge Reasons Goals Met Discharge Comments Pt close to term, end of plan of care, all goals met. Pt and PT discussed discharge to maintenance program for symptom management with pt to stop program before labor. Next Visit Focus/Plan Next Note Type Discharge Summary Next Visit Plan discharge from PT
== END 2024-03-07 12:48 | disposition home or self-care (01) ==
LOC: PHYS 14:30
PROVIDERS: Family Provider Family Medicine; PCP Family Medicine; Referring Provider Advanced Practice Midwife; Visit Provider Advanced Practice Midwife
DX: M54.50 Low back pain, unspecified (principal); R10.2 Pelvic and perineal pain; M46.1 Sacroiliitis, not elsewhere classified; R53.1 Weakness; M25.652 Stiffness of left hip, not elsewhere classified; M25.651 Stiffness of right hip, not elsewhere classified
CPT/HCPCS: 97110; 97140; 97162; 97530

== ENCOUNTER → 2024-03-06 10:51 | Outpatient (CLI) | payer OTHER, SELFPAY ==
[2024-03-06 14:41] LABS: Collection Time Urine 24 Hours; Protein (Total) Urine Random 16 mg/dL (0-12); Total Protein 24 Hour Urine 264 mg/day (42-225); Total Volume Urine 1650 mL
== END ==
PROVIDERS: Family Provider Family Medicine; PCP Registered Nurse; Referring Provider Nurse Practitioner Obstetrics & Gynecology; Visit Provider Nurse Practitioner Obstetrics & Gynecology
DX: O09.93 Supervision of high risk pregnancy, unspecified, third trimester (principal); O13.3 Gestational [pregnancy-induced] hypertension without significant proteinuria, third trimester
CPT/HCPCS: 84156

== ENCOUNTER 2024-03-12 21:42 | Inpatient (IN) | payer OTHER, SELFPAY ==
--- NOTE | 2024-03-12 22:18 | P.HPOB_ITS ---
OB HPI Date/Time Date of admission: 03/12/24 Date Patient Seen: 03/12/24 Time Patient Seen: 22:00 History of Present Condition Chief complaint: preeclampisa : 2 Para: 1 Estimated Date of Delivery: 04/02/24 Estimated Gestational Age (weeks): 37.0 Narrative: Priya Goodman is a 28 year old female @ 37wks by LMP and IUI dating, concordant with 10wk US presents for medical induction of labor for gestational hypertension. GHTN was diagnosed at 34 weeks and she was started on labetalol. She has had a normal 35 week growth US, reassuring bi-weekly testing and negative serial serum labs. Labetalol has been steadily titrated up to manage her BPs, most recently increased today to 400mg TID. complicated by preexisting insulin resistance managed with metformin 1,000mg BID; 100% normal BGs with continuous glucose monitor. Has been feeling lots of mild cramping for the last several weeks. Mild edema at the end of the day in her feet, ankles and hands. No vaginal bleeding, leaking of fluid, headache, vision changes or RUQ pain. She strongly desires a low intervention , tearful and disappointed with this worsening medical complication. Saw MFM early in her and declined to return. CNM consulted at the time of diagnosis of GHTN and initiation of labetalol and [facility]/Dr.Newlon fernandez before this admission. Her , Tania is present and supportive and has induced for this baby. Indications Indication for induction OB: gestational HTN/pre-eclampsia History of Present care: good care, initiated at week # (10), number of visits (14) and pounds weight gain (16) Dating criteria: LMP confirmed by 1st trimester US Ultrasounds: normal 1st trimester US, normal mid trimester US and other (35wk growth- 2680grams, 54th%; 03/06/24 cephalic presentation, LEE: 9.03cm) Obstetrical complications: gestational diabetes Medical complications: other (suspect DM2) Preadmission Labs Blood type: O (+) positive -: Antibody screen: negative, HBsAG: negative, HIV: negative and RPR/VDLR: negative -: Chlamydia screen: not detected and Gonorrhea screen: not detected -: Rubella: immune and Varicella: immune HCT: 30.8 HCAB: negative Cell-free DNA: low fraction result x 2 on NIPT, referred to [facility] with subsequent normal/negative NIPT Prior (ies) History: 05/18/2021: NSVB @ 36.4wks ([id number]), pitocin, 4.5hr labor, epidural, 6lb4oz, female Evaluation Evaluation Baseline heart rate: 135 Variability: Moderate (11-25) monitor accelerations: Present Monitor Decelerations: Absent Contraction Frequency (minutes): 10 Uterine Contraction Intensity: Mild Status: Category l Dilation (cm): 4 Effacement (%): 60 Dilation: 3-4 cm Effacement: 60-70% station: -2 Position of cervix: posterior Consistency: soft Oseguera score: 7 PFSH Medical History Depression Headache Anxiety ADHD Surgical History [place] teeth removed Family History Grandmother Diabetes mellitus Father Hyperlipidemia Sister Thyroid disease Social History marital status: number of children: 0 household members: spouse occupational status: employed Smoking Status: Former smoker alcohol intake: former Meds Home Medications and Allergies Home Medications Medication Instructions Recorded Confirmed Type PNV Folic Acid + Iron 1 tab PO DAILY 05/17/21 03/12/24 History Vitamin D3 10,000 units PO DAILY 05/17/21 05/17/21 History metformin 500 mg tablet,extended 1,000 mg PO TID 05/17/21 03/12/24 History release 24 hr aspirin 81 mg tablet 81 mg PO DAILY 03/12/24 03/12/24 History labetalol 100 mg tablet 400 mg PO TID 03/12/24 03/12/24 History Allergies Allergy/AdvReac Type Severity Reaction Status Date / Time pineapple Allergy Verified 05/17/21 12:55 Review of Systems Review of Systems ROS: Yes All systems reviewed with the patient and are negative except as otherwise documented OB Exam Vital signs Blood Pressure: 144/83 Pulse Rate: 95 Respiratory Rate: 16 Temperature: 97.2 F (temporal) Resp Effort & Inspection: normal respiratory effort and able to speak in complete sentences Auscultation: clear to auscultation bilaterally Cardio Rate: regular rate Rhythm: regular rhythm Extremities Lower extremity: Yes normal to inspection Presentation: vertex Objective Labs 03/12/24 22:15 03/12/24 22:15 Labs: urine protein creatine ratio pending Assessment and Plan Assessment and Plan Assessment and Plan narrative: A: Early term primipara Medical IOL for GHTN Anemia No indication for antibiotics Suspect Type 2 DM Cat I FHR P: Admit, routine orders. Cervical ripening with misoprostol overnight. [facility] is aware of patient status and plan of care. Will consult for OB for BP management PRN. Labor support, PRN. Reassess in am. Anticipate starting pitocin after 2 doses of misoprostol. Time-Based Coding :: [TOTAL MINUTES] spent with patient and on the chart (including review of chart, obtaining history, exam, reviewing outside data, placing orders, documenting exam and treatment plan, and counseling patient) on [DATE].
[2024-03-12 22:38] LABS: Add Manual Diff / Slide Review NO; Basophils Absolute Auto 100 /uL (0-100); Basophils Percent Auto 1.2 % (0-2); Eosinophils Absolute Auto 100 /uL (0-450); Eosinophils Percent Auto 1.1 % (2-4); Hemoglobin 10.2 g/dL (12.0-16.0); Lymphocytes Absolute Auto 2200 /uL (1100-4500); Lymphocytes Percent Auto 21.8 % (25-40); Mean Corpuscular Hemoglobin 26.4 PG (26-34); Mean Corpuscular Volume 80.2 fL (80-100); Monocytes Absolute Auto 800 /uL (0-900); Monocytes Percent Auto 8.1 % (3-14); Neutrophils Absolute Auto 6800 /uL (1500-7000); Neutrophils Percent Auto 67.8 % (50-75); Platelet Count 217 X10^3/uL (150-400); Red Blood Cell Count 3.87 X10^6/uL (4.0-5.2); Red Cell Distribution Width 14.6 % (11.6-14.8)
[2024-03-12 22:46] VITALS: BP 144/83
[2024-03-12 22:50] LABS: Alanine Aminotransferase 17 IU/L (<35); Albumin 3.3 g/dL (3.5-5.0); Albumin Globulin Ratio 1.1 (1.0-2.8); Alkaline Phosphatase 185 U/L (38-126); Aspartate Aminotransferase 19 IU/L (14-36); BUN Creatinine Ratio 36.4 (6-22); Bilirubin Total 0.3 mg/dL (0.2-1.3); Blood Urea Nitrogen 16 mg/dL (7-17); Calcium 9.8 mg/dL (8.4-10.2); Carbon Dioxide 20 mmol/L (22-32); Chloride 107 mmol/L (98-107); Estimated Glomerular Filt Rate > 60 mL/min (>60); Glucose 150 mg/dL (70-100); HEMOLYSIS < 15 (0-50); Potassium 3.9 mmol/L (3.4-5.1); Sodium 132 mmol/L (137-145); Total Protein 6.3 g/dL (6.3-8.2); Uric Acid 6.2 mg/dL (2.5-6.2)
[2024-03-12 23:07] VITALS: BP 144/83; PULSE 95; RESP 16
[2024-03-12 23:12] VITALS: TEMP 36.2
[2024-03-13 01:41] LABS: Creatinine Urine Random 101.37 mg/dL; Protein (Total) Urine Random 89 mg/dL (0-12); Protein Creatinine Ratio Urine 0.87 GRAM/24H
[2024-03-13] MEDS: LACTATED RINGERS 500 ML 1000 ML IV (02:10)
[2024-03-13] MEDS: LABETALOL 100 MG TABLET 400 MG PO ×3 (03:47→21:18)
--- NOTE | 2024-03-13 04:32 | PM.OBPNLAB ---
Date/Time Date Patient Seen: 03/13/24 Time Patient Seen: 04:32 Pain Control Pain control: tolerating well Comments: Mandie is attempting to rest through moderate contractions, rated at 5/10. Coping well. Continues to deny PEPE, vision changes, or RUQ pain. VS: BP 147/75, HR 78bpm, afebrile Labs: urine protein creatinine ratio resulted at 0.87 at 0148 Pelvic Exam Dilation (cm): 4 Effacement (%): 60 station: -2 Amniotic membrane status: Intact Comments: CE deferred Contractions Monitor mode: External Pitocin rate (mU/min): 0 Contraction frequency (min): 2 (1-4) Contraction duration (min): 1 Contraction pattern: Irregular Contraction intensity: Moderate Status status: Category ll Heart Rate Baseline: 145 Monitor Accelerations: Present Monitor Decelerations: Absent Comments: Very active fetus with tachycardic baseline, resolved with time and 500mL IVFB given by RN at 0210. Assessment and Plan Assessment: induction ongoing (preeclampsia) Plan: continuous present management Comments: 1 hour after 4am dose of labetalol, BP 161/92, repeated to 149/89. There was an initial higher BP that the nurse said was not accurate and the machine was not cycling correctly. Consulted for additional BP medication and plan was made to add nifedipine ER 30mg. Order placed for now. Patient currently faye too much for a second dose of misoprostol. Will recheck when contractions begin to space or at 0700.
[2024-03-13] MEDS: METFORMIN HCL 500 MG TABLET 1000 MG PO (05:38)
[2024-03-13] MEDS: NIFEdipine 30 MG TAB ER PO ×2 (05:39→17:36)
[2024-03-13] MEDS: fentaNYL 100 MCG/2 ML INJ IV ×2 (07:15→15:23)
--- NOTE | 2024-03-13 07:57 | PM.OBPNLAB ---
Date/Time Date Patient Seen: 03/13/24 Time Patient Seen: 08:01 Pain Control Pain control: narcotic analgesia Comments: Mandie has been unable to sleep through persistent, moderate contractions. Requested a dose of IV Fentanyl and has good relief with that dose. VS: BP 143/94, HR 81, afebrile Fasting BG 98mg/dL Pelvic Exam Dilation (cm): 5.5 Effacement (%): 80 station: -2 Amniotic membrane status: Intact Contractions Monitor mode: External Contraction frequency (min): 3 (2-4) Contraction duration (min): 1 Contraction pattern: Irregular Contraction intensity: Moderate Status Heart Rate Baseline: 135 Comments: Reassuring by intermittent auscultation. Off continuous monitoring until more active labor or indicated by medication. Assessment and Plan Assessment: induction ongoing (approaching active labor) Comments: Recommend AROM or pitocin to augment her labor and she declines at this time. Wants to give it another hour or 2 to see if her contractions persist or begin to space out, will agree to AROM if contractions slow or space. Notified [facility]/ of patient status and plan of care.
--- NOTE | 2024-03-13 10:01 | PM.AN.REGBLK ---
Regional Block Pre-procedure Procedure: Continuous Lumbar Epidural for L&D PMH/ROS narrative: PIH, Pre-e GDM PSH/Anesthesia history narrative: epidural x 1 - too numb ASA Class: III Labs: Hct 31.0 % (36-46) L 03/12/24 22:15 Plt Count 217 X10^3/uL (150-400) 03/12/24 22:15 Medications: Current Medications Generic Name Dose Route Start Last Admin Trade Name Freq PRN Reason Stop Dose Admin Calcium Carbonate 1,000 mg 03/12/24 22:06 Calcium Carbonate 500 Mg Tab PO Q2HR PRN Dyspepsia Carboprost Tromethamine 250 mcg 03/12/24 22:06 Carboprost 250 Mcg/Ml Ampul IM Q90M PRN Bleeding Fentanyl 100 mcg 03/12/24 22:06 03/13/24 07:15 Fentanyl 100 Mcg/2 Ml Inj IV 100 mcg Q1H PRN Administration Pain, Severe (7-10) Oxytocin/Lactated Ringer's 30 unit in 500 mls @ 200 mls/hr 03/12/24 22:06 Oxytocin Premix IV CONT PRN Bleeding Protocol Tranexamic Acid 1,000 mg/ 100 mls @ 600 mls/hr 03/12/24 22:06 Sodium Chloride IV NOW PRN Bleeding Labetalol HCl 400 mg 03/13/24 04:00 03/13/24 03:47 Labetalol 100 Mg Tablet PO 400 mg TID XANDER Administration Lidocaine HCl 20 ml 03/12/24 22:06 Lidocaine 1% 20 Ml INJ INTRA-OP PRN Post Delivery Metformin HCl 1,000 mg 03/13/24 00:00 03/13/24 05:38 Metformin Hcl 500 Mg Tablet PO 1,000 mg Q12HR XANDER Administration Methylergonovine Maleate 0.2 mg 03/12/24 22:06 Methylergonovine 0.2 Mg Tablet PO Q6HR PRN Heavy Bleeding Methylergonovine Maleate 0.2 mg 03/12/24 22:06 Methylergonovine 0.2 Mg/Ml Vial IM NOW PRN Bleeding Mineral Oil 30 ml 03/12/24 22:06 Mineral Oil 30 Ml Udc TOP PRN PRN Version Misoprostol 800 mcg 03/12/24 22:06 Misoprostol 200 Mcg Tablet NC NOW PRN Bleeding Misoprostol 400 mcg 03/12/24 22:06 Misoprostol 200 Mcg Tablet SL NOW PRN Bleeding Naloxone HCl 0.2 mg 03/12/24 22:06 Naloxone 0.4 Mg/Ml Vial IV Q2MIN PRN Opiate Reversal Ondansetron HCl 4 mg 03/12/24 22:06 Ondansetron 4 Mg/2 Ml Inj IV Q4HR PRN Nausea And Vomiting Oxytocin 10 unit 03/12/24 22:06 Oxytocin 10 Unit/Ml Vial IM NOW PRN Bleeding Sertraline HCl 50 mg 03/13/24 21:00 Sertraline 50 Mg Tablet PO BEDTIME XANDER Allergies: Allergies Allergy/AdvReac Type Severity Reaction Status Date / Time pineapple Allergy Verified 05/17/21 12:55 Procedure Insertion date: 03/13/24 Insertion time: 09:40 Prep/Local: 1% lidocaine Interspace: l3 l4 Patient position: sitting Needle: 17 gauge Tuohy Loss of resistance with: saline ISIDORO at (cm): 6 Catheter placed at SKIN (cm): 15 Insertion: No CSF, No Blood, No Paresthesia with insertion, No Paresthesia with injection and No Test dose reaction Initial Medications TEST DOSE time: 09:42 BOLUS DOSE time: 09:50 BOLUS DOSE med: other (lido 1.5% with epinephrine 1:200k 2.5 mL) Infusion INFUSION: with fentanyl 2 mcg/mL and 0.0625% bupivacaine Initial rate (mL/hr): 8 Subsequent interventions: n/a Post-procedure Anesthesia date START: 03/13/24 Anesthesia time START: :24
--- NOTE | 2024-03-13 10:50 | PM.OBPNLAB ---
Date/Time Date Patient Seen: 03/13/24 Time Patient Seen: 10:15 Pain Control Pain control: epidural Comments: After continued discussion of options for pain relief and blood pressure management, Mandie opted for an epidural which was placed with good relief. She is agreeable to AROM, now that she is comfortable. VS: BP 149/79, HR 81bpm, T 98F oral Pelvic Exam Dilation (cm): 6 Effacement (%): 80 station: -2 Amniotic membrane status: Ruptured (AROM, clear) Contractions Monitor mode: External Contraction frequency (min): 3 (2-4) Contraction pattern: Irregular Contraction intensity: Moderate Status status: Category l Heart Rate Baseline: 145 Monitor Accelerations: Present Monitor Decelerations: Absent Monitor Variability: Moderate Assessment and Plan Assessment: active labor and induction ongoing Plan: continuous present management Comments: Will consider pitocin if contractions space or minimal change at next CE. Encourage frequent position changes with peanut ball use. Reassess in 4 hours or sooner, PRN.
[2024-03-13] MEDS: LACTATED RINGERS 1,000 ML 100 ML IV (10:56)
[2024-03-13] MEDS: diphenhydrAMINE 50 MG/ML VIAL 25 MG IV ×2 (10:57→16:21)
[2024-03-13] MEDS: OXYTOCIN PREMIX 30 UNIT/500 ML PLAST..BAG 200 UNIT IV ×2 (11:43→15:35)
[2024-03-13] MEDS: TRANEXAMIC ACID 1,000 MG in SODIUM CHLORIDE 0.9% 100 ML 600 MG IV (14:31)
--- NOTE | 2024-03-13 14:45 | P.PCNOB_ITS ---
Events: Induced HTN and Labor Induction Labor & Delivery Delivery date: 03/13/24 Intrapartal Events: Mild Preeclampsia Cervical ripening method: per misoprostal protocol Induction method: AROM Delivery monitor: external FHT and external uterine Route of delivery: L&D Laceration Description: Labial and Superficial Quantitative Blood Loss: 412 Anesthesia Type: Epidural Narrative: IOL for preeclampsia with a single dose of misoprostol, AROM, pitocin augmentation (max dose 4mu/min) and adequate epidural anesthesia progressed well. BPs managed with nifedipine XR 30mg and labetalol 400mg TID. Primarily Cat I FHR tracing until immediately prior to second stage. CE at that time was 9.5cm/C/0, then presumed complete with spontaneous urge to push 2 contractions later. Strong maternal efforts led to rapid descent of vertex. NSVB of a vi gorous baby boy in ELIZABETH position. There was no nuchal cord and the shoulders delivered easily without additional maneuvers. Mother Tania was hands no with CNM to bring their son to [facility]'s abdomen for drying and skin to skin. Remaining 30 units of pitocin in 500mL LR was increased to 250mL/hr for AMTSL. After cessation of pulsation, the cord was double clamped by CNM and cut by Priya. Cord blood sample was collected to send. Heavier bleeding was noted and pitocin was increased to a bolus. Gentle cord traction and a single maternal push led to spontaneous, Schultze delivery of an apparently intact placenta, membranes and 3VC. Trailing membranes were teased out with a ring forceps and fundus was immediately firm. Vaginal bleeding slowed, but remained moderate with small clots with every fundal check. TXA was ordered at 412 cumulative QBL. Vagina and perineum inspected and superficial periclitoral laceration was noted to be hemostatic with no indication for repair. Fundus remained firm and next fundal check expressed out additional clots for a cumulative QBL of 690mL. [facility] was called for consultation for PPH and RENAE placement was initiated. While setting up for RENAE, an additional 399ML of clots and red blood (cumulative 1217mL) were expressed from firm uterus with strong fundal massage. RENAE placed by with some difficulty d/t angle of uterus. Balloon inflated with 85mL sterile water and connected to wall suction at 80mmHg. to continue to co-manage. CNM to transfer care for severe range BPs or severe features. [place] Baby 1: Infant gender: Male Presentation: vertex Position: Right Occiput Anterior Placenta delivery description: Spontaneous and Normal Configuration score (1 min): 8 score (5 min): 9 weight: 3.292 kg Plan for aftercare: Other (continue labetalol and nifedipine, anticipate d/c after 24 hours of controlled BPs, antibiotics PP, CBC in 6 hours)
[2024-03-13] MEDS: miSOPROStoL 200 MCG TABLET 400 MCG SL (15:12)
--- NOTE | 2024-03-13 16:14 | P.PN_ITS ---
Subjective Subjective Date Patient Seen: 03/13/24 Time Patient Seen: 15:15 Interval history: Called to bedside for concern for PPH by pts CNM after delivery due to bleeding of approximately 600cc since delivery with continued bleeding despite cytotec and pitocin (unable to give methergine due to Bp elevations). Placenta appearing intact per provider. Pt is a 28 yo G2 now P2 Who presented at 37 weeks EGA LMP and IUI dating for induction of labor for gestational hypertension. on arrival, she was on labetalol 400mg TID which he had been slowly uptitrated since diagnosis of gestational hypertension at 34 weeks. she was started on misoprostol for cervical ripening. Intermittently through labor course would have elevated blood pressures which were nonsustained. She was started on nifedipine 30 mg extended release once daily on the morning of 03/13 after urine PVC was found to be elevated to 0.87. epidural was placed and AROM was completed. She progressed and delivered via uncomplicated . Placenta was delivered intact. Pitocin was started and fundus was firm but some small clots were expressed with fundal check. Due to rising QBL, TXA was ordered at 412 mL. A small periclitoral laceration was noted but was hemostatic and not repaired. Additional clots continued to be expressed. When QBL reached 690 mL, OB construction grip was consulted for possible EMELY placement. By arrival at bedside, cumulative QBL was 1217mL Emely was placed with some difficulty due to angle of the uterus and balloon was inflated with 85 mL of sterile water and connected to the wall suction with 80mmHG. Exam Narrative Exam Narrative: GEN: uncomfortable appearing but stable, NAD Pulm: breathing comfortably Abd: non-tender, fundus firm : trickling of blood at introutus. on Objective Labs 03/12/24 22:15 03/12/24 22:15 Labs: Laboratory Results - last 24 hr 03/12/24 03/13/24 22:15 01:00 WBC 10.0 RBC 3.87 L Hgb 10.2 L Hct 31.0 L MCV 80.2 MCH 26.4 MCHC 33.0 RDW 14.6 Plt Count 217 Neut % (Auto) 67.8 Lymph % (Auto) 21.8 L [place] % (Auto) 8.1 Eos % (Auto) 1.1 L Baso % (Auto) 1.2 Neut # (Auto) 6800 Lymph # (Auto) 2200 [place] # (Auto) 800 Eos # (Auto) 100 Baso # (Auto) 100 Sodium 132 L Potassium 3.9 Chloride 107 Carbon Dioxide 20 L BUN 16 Creatinine 0.44 L Estimated GFR > 60 BUN/Creatinine Ratio 36.4 H Glucose 150 H Uric Acid 6.2 Calcium 9.8 Total Bilirubin 0.3 AST 19 ALT 17 Alkaline Phosphatase 185 H Total Protein 6.3 Albumin 3.3 L Globulin 3.0 Albumin/Globulin Ratio 1.1 U Random Total Protein 89 H Urine Creatinine 101.37 Protein/Creatinin Ratio 0.87 Blood Type O Positive Antibody Screen Negative [facility] Medical History Depression Headache Anxiety ADHD Surgical History [place] teeth removed Family History Grandmother Diabetes mellitus Father Hyperlipidemia Sister Thyroid disease Social History marital status: number of children: 0 household members: spouse occupational status: employed Smoking Status: Former smoker alcohol intake: former
[2024-03-13] MEDS: MAGNESIUM SULFATE 4 GM/100 ML PIGGYBACK IV (17:10)
[2024-03-13] MEDS: MAGNESIUM SULFATE 20 GM/500 ML IV.SOLN IV (17:20)
[2024-03-13] MEDS: OXYCODONE IR 5 MG TABLET PO ×2 (17:45→21:19)
--- NOTE | 2024-03-13 18:18 | PM.PN.1 ---
Subjective Subjective Date Patient Seen: 03/13/24 Time Patient Seen: 15:15 Interval history: Called to bedside for concern for PPH by pts CNM after delivery due to bleeding of approximately 600cc since delivery with continued bleeding despite cytotec and pitocin (unable to give methergine due to Bp elevations). Placenta appearing intact per provider. Pt is a 28 yo G2 now P2 Who presented at 37 weeks EGA LMP and IUI dating for induction of labor for gestational hypertension.? on arrival, she was on labetalol 400mg TID which he had been slowly uptitrated since diagnosis of gestational hypertension at 34 weeks.?? she was started on misoprostol for cervical ripening.? Intermittently through labor course would have elevated blood pressures which were nonsustained.? She was started on nifedipine 30 mg extended release once daily on the morning of 03/13 after urine PVC was found to be elevated to 0.87.? epidural was placed and AROM was completed. She progressed and delivered via uncomplicated . Placenta was delivered intact. Pitocin was started and fundus was firm but some small clots were expressed with fundal check.? Due to rising QBL, TXA was ordered at 412 mL.? A small periclitoral laceration was noted but was hemostatic and not repaired.? Additional clots continued to be expressed.? When QBL reached 690 mL, OB athletic monitor was consulted for possible EMELY placement. By arrival at bedside, cumulative QBL was 1217mL Emely was placed with some difficulty due to angle of the uterus and balloon was inflated with 85 mL of sterile water and connected to the wall suction with 80mmHG. Exam Narrative Exam Narrative: GEN: uncomfortable appearing but stable, NAD Pulm: breathing comfortably Abd: non-tender, fundus firm : trickling of blood at introitus. large clot burden felt at the cervical os when attempting to place the EMELY. Uterus anteverted but very firm. Clot cleared and EMELY placed with some difficulty due to angle of entry. EMELY slowly advanced and Cervical seal inflated with 85mL. Wall suction turned to 90mmHG and bleeding slowed. Blood noted in the tubing. Objective Labs 03/12/24 22:15 03/12/24 22:15 Labs: Laboratory Results - last 24 hr 03/12/24 03/13/24 22:15 01:00 WBC 10.0 RBC 3.87 L Hgb 10.2 L Hct 31.0 L MCV 80.2 MCH 26.4 MCHC 33.0 RDW 14.6 Plt Count 217 Neut % (Auto) 67.8 Lymph % (Auto) 21.8 L [place] % (Auto) 8.1 Eos % (Auto) 1.1 L Baso % (Auto) 1.2 Neut # (Auto) 6800 Lymph # (Auto) 2200 [place] # (Auto) 800 Eos # (Auto) 100 Baso # (Auto) 100 Sodium 132 L Potassium 3.9 Chloride 107 Carbon Dioxide 20 L BUN 16 Creatinine 0.44 L Estimated GFR > 60 BUN/Creatinine Ratio 36.4 H Glucose 150 H Uric Acid 6.2 Calcium 9.8 Total Bilirubin 0.3 AST 19 ALT 17 Alkaline Phosphatase 185 H Total Protein 6.3 Albumin 3.3 L Globulin 3.0 Albumin/Globulin Ratio 1.1 U Random Total Protein 89 H Urine Creatinine 101.37 Protein/Creatinin Ratio 0.87 Blood Type O Positive Antibody Screen Negative PFSH Medical History Depression Headache Anxiety ADHD Surgical History [place] teeth removed Family History Grandmother Diabetes mellitus Father Hyperlipidemia Sister Thyroid disease Social History marital status: number of children: 0 household members: spouse occupational status: employed Smoking Status: Former smoker alcohol intake: former Assessment & Plan Assessment and plan (1) hemorrhage: Qualifiers: hemorrhage type: unspecified Qualified Code(s): O72.1 - Other immediate hemorrhage Status: Acute (2) Pre-eclampsia, severe, delivered: Status: Acute Plan 28 yo G2 now P2 Who presented at 37 weeks EGA LMP and IUI dating for induction of labor for gestational hypertension who delivered via . following delivery she was noted to have a firm fundus but was continuing to have bleeding. She was given TXA and Pitocin was continued. Lower uterine segment sweep was performed with production of significant clot. ## hemorrhage: - s/p TXA 1g and Pitocin and Cytotec 600mcg, avoiding methergine due to Pre-E. Hemabate available if needed - EMELY in place - 50mg IV Metronidazole + 1g Ancef for ppx - plan to re-evaluate in 2 hours - If no bleeding, will turn off suction for 30 min, if continuing to be well controlled will remove EMELY - If bleeding persists, will consider a more thorough exam to assess fr cervical lacreation but pt will need pain control for this ## Pre-Eclampsia with SF: Severe by BP criteria, sustained Bps>180 systolic - Start Mag 4g bolus, 2g.hrcontinuous for 24 hours - Increase Nifedipine to 30mg ER BID - Continue Labetolol 400mg TID - PRN Hydralazine available for severe range BPs - Trend neuro exam and I/Os Time-Based Coding :: [TOTAL MINUTES] spent with patient and on the chart (including review of chart, obtaining history, exam, reviewing outside data, placing orders, documenting exam and treatment plan, and counseling patient) on [DATE].
[2024-03-13] MEDS: CEFAZOLIN VIAL 1 GM in SODIUM CHLORIDE 0.9% 100 ML IV (18:47)
[2024-03-13] MEDS: ACETAMINOPHEN 325 MG TABLET 650 MG PO (19:54)
[2024-03-13] MEDS: metroNIDAZOLE 500 MG/100 ML PIGGYBACK 100 MG IV (20:22)
[2024-03-13 21:18] VITALS: BP 139/68; PULSE 103
[2024-03-13] MEDS: SERTRALINE 50 MG TABLET PO (21:19)
[2024-03-13] MEDS: METFORMIN XR 500 MG TABLET 1000 MG PO (22:01)
[2024-03-13 22:59] LABS: Add Manual Diff / Slide Review NO; Basophils Absolute Auto 100 /uL (0-100); Basophils Percent Auto 0.4 % (0-2); Eosinophils Absolute Auto 100 /uL (0-450); Eosinophils Percent Auto 0.4 % (2-4); Hematocrit 24.2 % (36-46); Hemoglobin 7.9 g/dL (12.0-16.0); Lymphocytes Absolute Auto 2000 /uL (1100-4500); Lymphocytes Percent Auto 14.8 % (25-40); Mean Corpuscular HGB Conc 32.6 % (30-36); Mean Corpuscular Hemoglobin 25.9 PG (26-34); Mean Corpuscular Volume 79.5 fL (80-100); Monocytes Absolute Auto 900 /uL (0-900); Monocytes Percent Auto 6.3 % (3-14); Neutrophils Absolute Auto 10500 /uL (1500-7000); Neutrophils Percent Auto 78.1 % (50-75); Platelet Count 169 X10^3/uL (150-400); Red Blood Cell Count 3.04 X10^6/uL (4.0-5.2); Red Cell Distribution Width 14.6 % (11.6-14.8); White Blood Cell Count 13.4 X10^3/uL (4.5-11.0)
[2024-03-14] MEDS: IBUPROFEN 600 MG TABLET PO ×4 (00:31→18:18)
[2024-03-14] MEDS: OXYCODONE IR 5 MG TABLET PO ×6 (01:20→22:34)
[2024-03-14] MEDS: ACETAMINOPHEN 325 MG TABLET 975 MG PO (02:19)
[2024-03-14] MEDS: MAGNESIUM SULFATE 20 GM/500 ML IV.SOLN IV ×2 (02:25→11:01)
[2024-03-14] MEDS: NIFEdipine 30 MG TAB ER PO (05:06)
[2024-03-14 06:30] LABS: Add Manual Diff / Slide Review NO; Basophils Absolute Auto 100 /uL (0-100); Basophils Percent Auto 0.7 % (0-2); Eosinophils Absolute Auto 100 /uL (0-450); Eosinophils Percent Auto 1.2 % (2-4); Hematocrit 24.2 % (36-46); Hemoglobin 7.8 g/dL (12.0-16.0); Lymphocytes Absolute Auto 2700 /uL (1100-4500); Lymphocytes Percent Auto 22.1 % (25-40); Mean Corpuscular HGB Conc 32.4 % (30-36); Mean Corpuscular Hemoglobin 25.9 PG (26-34); Monocytes Absolute Auto 900 /uL (0-900); Monocytes Percent Auto 7.4 % (3-14); Neutrophils Absolute Auto 8400 /uL (1500-7000); Neutrophils Percent Auto 68.6 % (50-75); Platelet Count 171 X10^3/uL (150-400); Red Blood Cell Count 3.03 X10^6/uL (4.0-5.2); Red Cell Distribution Width 14.5 % (11.6-14.8); White Blood Cell Count 12.2 X10^3/uL (4.5-11.0)
[2024-03-14 06:44] LABS: Alanine Aminotransferase 15 IU/L (<35); Albumin 2.8 g/dL (3.5-5.0); Albumin Globulin Ratio 1.1 (1.0-2.8); Alkaline Phosphatase 165 U/L (38-126); Aspartate Aminotransferase 25 IU/L (14-36); BUN Creatinine Ratio 18.8 (6-22); Bilirubin Total 0.2 mg/dL (0.2-1.3); Blood Urea Nitrogen 9 mg/dL (7-17); Carbon Dioxide 24 mmol/L (22-32); Chloride 104 mmol/L (98-107); Estimated Glomerular Filt Rate > 60 mL/min (>60); Globulin 2.6 g/dL (1.7-4.1); Glucose 87 mg/dL (70-100); HEMOLYSIS < 15 (0-50); Potassium 4.6 mmol/L (3.4-5.1); Sodium 132 mmol/L (137-145); Total Protein 5.4 g/dL (6.3-8.2)
[2024-03-14] MEDS: CYCLOBENZAPRINE 10 MG TABLET 5 MG PO (07:04)
[2024-03-14] MEDS: LACTATED RINGERS 1,000 ML 100 ML IV (07:30)
--- NOTE | 2024-03-14 08:24 | PM.OBPN.1 ---
Subjective - OB Subjective Patient comments: pain well controlled [place] baby status: doing well feeding status: exclusively breast feeding Narrative: Patient is a 28 yo G2 now P2 who presented at 37 weeks EGA based on LMP and IUI dating for IOL for GHTN. She was on labetalol 400 mg TID. She was given misoprostol orally for cervical ripening and had local allergic reaction. She had intermittent severe range blood pressures during labor and was started on nifedipine 30 mg XL. P/c ratio was elevated at 0.87. Delivery was complicated by PPH requiring cytotec, pitocin, TXA and RENAE placement. Received metronidazole and ancef for prophylaxis. She was started on magnesium for sustained severe range pressures. Date Patient Seen: 03/14/24 Time Patient Seen: 07:30 Interval history: Bleeding minimal overnight. Ongoing swelling improving. Denies headaches, vision changes, or difficulty breathing. Exam Narrative Exam Narrative: NAD, breathing easily. Heart with RRR, lungs CTAB. Objective Labs 03/14/24 06:12 03/14/24 06:12 Labs: Laboratory Results - last 24 hr 03/13/24 03/14/24 22:51 06:12 WBC 13.4 H 12.2 H RBC 3.04 L 3.03 L Hgb 7.9 L 7.8 L Hct 24.2 L 24.2 L MCV 79.5 L 80.0 MCH 25.9 L 25.9 L MCHC 32.6 32.4 RDW 14.6 14.5 Plt Count 169 171 Neut % (Auto) 78.1 H 68.6 Lymph % (Auto) 14.8 L 22.1 L [place] % (Auto) 6.3 7.4 Eos % (Auto) 0.4 L 1.2 L Baso % (Auto) 0.4 0.7 Neut # (Auto) 96441 H 8400 H Lymph # (Auto) 2000 2700 [place] # (Auto) 900 900 Eos # (Auto) 100 100 Baso # (Auto) 100 100 Sodium 132 L Potassium 4.6 Chloride 104 Carbon Dioxide 24 BUN 9 Creatinine 0.48 L Estimated GFR > 60 BUN/Creatinine Ratio 18.8 Glucose 87 Calcium 8.0 L Total Bilirubin 0.2 AST 25 ALT 15 Alkaline Phosphatase 165 H Total Protein 5.4 L Albumin 2.8 L Globulin 2.6 Albumin/Globulin Ratio 1.1 Assessment & Plan Assessment and Plan (1) hemorrhage: Status: Acute (2) Pre-eclampsia, severe, delivered: Status: Acute Plan day: 1 Comments: 28 yo G2 now P2 Who presented at 37 weeks EGA LMP and IUI dating for induction of labor for gestational hypertension who delivered via . following delivery she was noted to have a firm fundus but was continuing to have bleeding. She was given TXA and Pitocin was continued. Lower uterine segment sweep was performed with production of significant clot. ## hemorrhage: - s/p TXA 1g and Pitocin and Cytotec 600mcg, avoiding methergine due to Pre-E. Hemabate available if needed - RENAE removed without further bleeding - 50mg IV Metronidazole + 1g Ancef for ppx - Hgb 7.8 this AM, iron sucrose 200 mg given IV - repeat cbc tomorrow AM ## Pre-Eclampsia with SF: Severe by BP criteria, sustained Bps>180 systolic - S/p Mag 4g bolus, 2g/hr continuous for 24 hours - Continue Labetolol 400mg TID, nifedipine 20 mg daily - PRN Hydralazine available for severe range BPs - Trend neuro exam and I/Os ## Swelling Patient with significant swelling. Discussed risks vs benefits of lasix on breast milk production. Patient aware and requesting lasix. -20 mg lasix daily x 3 days Time-Based Coding :: 45 minutes spent with patient and on the chart (including review of chart, obtaining history, exam, reviewing outside data, placing orders, documenting exam and treatment plan, and counseling patient) on 03/14/24.
[2024-03-14] MEDS: METFORMIN XR 500 MG TABLET 1000 MG PO ×2 (09:05→17:17)
[2024-03-14 09:06] VITALS: BP 132/79; PULSE 76
[2024-03-14] MEDS: LABETALOL 100 MG TABLET 400 MG PO ×2 (09:06→21:12)
[2024-03-14] MEDS: ACETAMINOPHEN 325 MG TABLET 650 MG PO ×3 (09:07→21:13)
[2024-03-14] MEDS: IRON SUCROSE 200 MG in SODIUM CHLORIDE 0.9% 100 ML 220 MG IV (13:28)
[2024-03-14] MEDS: FUROSEMIDE 20 MG/2 ML VIAL IV (14:56)
[2024-03-14 15:00] VITALS: BP 114/68; PULSE 84
[2024-03-14] MEDS: DERMOPLAST SPRAY 20% 60 ML 1 SPRAY TOP (17:18)
[2024-03-14 21:12] VITALS: BP 137/79; PULSE 81
[2024-03-14] MEDS: SERTRALINE 50 MG TABLET PO (21:13)
[2024-03-15] MEDS: IBUPROFEN 600 MG TABLET PO ×3 (00:09→12:38)
[2024-03-15] MEDS: CYCLOBENZAPRINE 10 MG TABLET 5 MG PO ×3 (00:57→17:26)
[2024-03-15] MEDS: OXYCODONE IR 5 MG TABLET PO ×3 (02:17→16:22)
[2024-03-15] MEDS: ACETAMINOPHEN 325 MG TABLET 650 MG PO ×2 (05:03→12:37)
[2024-03-15 06:42] LABS: Add Manual Diff / Slide Review NO; Basophils Absolute Auto 100 /uL (0-100); Basophils Percent Auto 0.6 % (0-2); Eosinophils Absolute Auto 200 /uL (0-450); Eosinophils Percent Auto 1.7 % (2-4); Hematocrit 22.5 % (36-46); Hemoglobin 7.2 g/dL (12.0-16.0); Lymphocytes Absolute Auto 2800 /uL (1100-4500); Lymphocytes Percent Auto 24.8 % (25-40); Mean Corpuscular HGB Conc 32.2 % (30-36); Mean Corpuscular Hemoglobin 25.7 PG (26-34); Mean Corpuscular Volume 79.8 fL (80-100); Monocytes Absolute Auto 800 /uL (0-900); Monocytes Percent Auto 7.2 % (3-14); Neutrophils Absolute Auto 7300 /uL (1500-7000); Neutrophils Percent Auto 65.7 % (50-75); Platelet Count 197 X10^3/uL (150-400); Red Blood Cell Count 2.82 X10^6/uL (4.0-5.2); Red Cell Distribution Width 14.8 % (11.6-14.8); White Blood Cell Count 11.2 X10^3/uL (4.5-11.0)
[2024-03-15 07:07] LABS: Alanine Aminotransferase 17 IU/L (<35); Albumin 2.9 g/dL (3.5-5.0); Albumin Globulin Ratio 1.1 (1.0-2.8); Alkaline Phosphatase 144 U/L (38-126); Aspartate Aminotransferase 20 IU/L (14-36); BUN Creatinine Ratio 21.7 (6-22); Bilirubin Total 0.2 mg/dL (0.2-1.3); Blood Urea Nitrogen 10 mg/dL (7-17); Calcium 8.2 mg/dL (8.4-10.2); Carbon Dioxide 22 mmol/L (22-32); Chloride 106 mmol/L (98-107); Estimated Glomerular Filt Rate > 60 mL/min (>60); Globulin 2.6 g/dL (1.7-4.1); Glucose 111 mg/dL (70-100); HEMOLYSIS < 15 (0-50); Sodium 134 mmol/L (137-145); Total Protein 5.5 g/dL (6.3-8.2)
[2024-03-15] MEDS: NIFEdipine 30 MG TAB ER PO (09:30)
[2024-03-15] MEDS: METFORMIN XR 500 MG TABLET 1000 MG PO ×2 (09:30→17:26)
[2024-03-15] MEDS: LABETALOL 100 MG TABLET 400 MG PO ×2 (09:31→15:32)
[2024-03-15] MEDS: FUROSEMIDE 20 MG/2 ML VIAL IV (09:51)
[2024-03-15 13:30] VITALS: BP 133/73; PULSE 101; RESP 16; TEMP 36.9
--- NOTE | 2024-03-15 13:47 | PM.OBDS.1 ---
Discharge Providers Provider Date of admission: 03/12/24 21:42 Discharge Date: 03/15/24 Primary care physician: ALBA Saba Consults: 03/14/24 14:33 Consult to Sales Warehouse Driver Routine Comment: Discharge provider: Adela Eng MD Summary Hospital Course Date Patient Seen: 03/15/24 Time Patient Seen: 01:00 Hospital Course: Pt is a 28 yo G2 now P2 Who presented at 37 weeks EGA LMP and IUI dating for induction of labor for gestational hypertension.? on arrival, she was on labetalol 400mg TID which he had been slowly uptitrated since diagnosis of gestational hypertension at 34 weeks.?? she was started on misoprostol for cervical ripening.? Intermittently through labor course would have elevated blood pressures which were nonsustained.? She was started on nifedipine 30 mg extended release once daily on the morning of 03/13 after urine PVC was found to be elevated to 0.87.? epidural was placed and AROM was completed. She progressed and delivered via uncomplicated . Placenta was delivered intact. Pitocin was started and fundus was firm but some small clots were expressed with fundal check.? Due to rising QBL, TXA was ordered at 412 mL.? Buccal cytotec was also given. A small periclitoral laceration was noted but was hemostatic and not repaired.? Additional clots continued to be expressed.? When QBL reached 690 mL, OB top distribution executive was consulted for possible RENAE placement. By arrival at bedside, cumulative QBL was 1217mL. RENAE device was palced and remained on suction for 3 hours before removed from suction then after 30 minutes of monitoring removed entirely. BLeeding was minimal from that point forward. Hgb dropped from 10.7 to 7.2. She was given an IV Fe infusion prior to discharge but was feeling overall well During the immediate PP course she was noted to have multiple sustained severe range blood pressures. HEr nifedipine was increased to BID and she was started on Mag for PRe-E wtih SF. Bps improved and were stable in 130s systolic over 70s diastolic after mag discontinuation. She has follow up scheduled with [facility] in the coming days and has a BP cuff at home. Prior to discharge, BP goals were reviewed and she will contact CN if BPs are rising or if any Pre-E sx return. Peripartum Data Infant Delivery Method: Natural Vaginal Laceration Description: Superficial (superficial periclitoral ) complications: other (PPH and Progression to PRe-E with SF ) Discharge Diagnosis (1) hemorrhage: Start Date: 03/13/24 Status: Acute (2) Pre-eclampsia, severe, delivered: Start Date: 03/13/24 Status: Acute Status at Discharge Cognitive/behavioral status at discharge: oriented Functional status at discharge: independent ambulation Time Spent with Patient Time attestation: Total time spent providing and/or coordinating discharge services: Time spent: Less than 30 minutes Objective Labs 03/15/24 06:31 03/15/24 06:31 Labs: Laboratory Results - last 24 hr 03/15/24 06:31 WBC 11.2 H RBC 2.82 L Hgb 7.2 L Hct 22.5 L MCV 79.8 L MCH 25.7 L MCHC 32.2 RDW 14.8 Plt Count 197 Neut % (Auto) 65.7 Lymph % (Auto) 24.8 L [place] % (Auto) 7.2 Eos % (Auto) 1.7 L Baso % (Auto) 0.6 Neut # (Auto) 7300 H Lymph # (Auto) 2800 [place] # (Auto) 800 Eos # (Auto) 200 Baso # (Auto) 100 Sodium 134 L Potassium 4.0 Chloride 106 Carbon Dioxide 22 BUN 10 Creatinine 0.46 L Estimated GFR > 60 BUN/Creatinine Ratio 21.7 Glucose 111 H Calcium 8.2 L Total Bilirubin 0.2 AST 20 ALT 17 Alkaline Phosphatase 144 H Total Protein 5.5 L Albumin 2.9 L Globulin 2.6 Albumin/Globulin Ratio 1.1 Exam Narrative Exam Narrative: GEN: Healthy appearing, well-developed, NAD. PSYCH: Good Judgment. AOx3. Normal memory, mood, and affect HEENT: -Head: NC/AT -Eyes: No discharge or redness CV: warm and well perfused, RRR, no murmurs LUNGS: breathing comfortably on RA, CTAB, no crackles SKIN: Warm, well perfused. No skin rashes or abnormal lesions ABD: fundus firm below U MSK: No deformities, edema present and improving from prior NEURO: No focal deficits Discharge Plan Discharge Plan Patient Disposition: Home Discharge orders & Medications Prescriptions: New nifedipine 30 mg Tablet Extended Release 24hr 30 mg PO DAILY Qty: 30 0RF cyclobenzaprine 10 mg Tablet 5 mg PO Q8HR Qty: 10 0RF ibuprofen 600 mg Tablet 600 mg PO Q6HR PRN (Reason: Pain, Mild (1-3)) Qty: 30 0RF oxycodone 5 mg Tablet 5 mg PO Q4HR PRN (Reason: Pain, Moderate (4-6)) Qty: 10 0RF Continued labetalol 100 mg tablet 400 mg PO TID metformin 500 mg tablet extended release 24 hr 1,000 mg PO TID PNV Folic Acid + Iron 1 tab PO DAILY Vitamin D3 10,000 units PO DAILY Discontinued aspirin 81 mg Tablet 81 mg PO DAILY Follow up/Referrals: Amber Aj, CNM [[facility]] - (Wednesday, 03/20 8:15am, bp check. 03/27 11:00am, 2 wk in person. 04/24 9:45am, 6 week appointment.) Visit Report/Discharge Packet Stand Alone Forms: Discharge: Care, Patient Portal/API, Stroke Signs & Symptoms Discharge Data Primary Care Provider: Shelby Allen Discharges patient from system. Discharge Date/Time: 03/15/24 17:50
[2024-03-15 15:32] VITALS: BP 147/82
[2024-03-15] MEDS: IRON SUCROSE 200 MG in SODIUM CHLORIDE 0.9% 100 ML 220 MG IV (16:15)
== END 2024-03-15 17:50 | disposition home or self-care (01) | DRG 768 ==
PROVIDERS: Family Medicine; Student in an Organized Health Care Education/Training Program; Admitting Provider Nurse Practitioner Obstetrics & Gynecology; Family Provider Family Medicine; PCP Registered Nurse; Referring Provider Nurse Practitioner Obstetrics & Gynecology; Visit Provider Nurse Practitioner Obstetrics & Gynecology
DX: O72.1 Other immediate postpartum hemorrhage (principal); Z37.0 Single live birth; O24.12 Pre-existing type 2 diabetes mellitus, in childbirth; O14.14 Severe pre-eclampsia complicating childbirth; Z3A.37 37 weeks gestation of pregnancy; Z79.84 Long term (current) use of oral hypoglycemic drugs; Z67.40 Type O blood, Rh positive; O99.02 Anemia complicating childbirth; D64.9 Anemia, unspecified
CPT/HCPCS: 36415; 59050; 80053; 84550; 85025; 86850; 86900; 86901; G0379; J0690; J1200; J1756; J1940; J2590; J3010; J3475; S0191

== ENCOUNTER → 2024-05-05 12:40 | Outpatient (CLI) | payer OTHER, SELFPAY ==
--- NOTE | 2024-05-05 12:41 | DI.US.S_ITS ---
PROCEDURE: US PELVIC COMPLETE INDICATIONS: evaluate for retain POCs TECHNIQUE: Real-time scanning was performed of the pelvic organs, with image documentation. Additional endovaginal scanning was necessary due to incomplete visualization of the adnexal and endometrial structures by transabdominal scanning. COMPARISON: None. FINDINGS: Uterus: Uterus is retroverted and normal in size at 7.6 x 3.6 x 5.5 cm. The myometrium is homogeneous. The endometrium measures 5.9 mm combined thickness. Trace free fluid within the cervical canal. Ovaries: The right ovary measures 3.5 x 3.3 x 2.5 cm, with a calculated ovarian volume of 14.6 cc. Simple right ovarian cyst measuring 1.8 x 1.3 x 1.3 cm. The left ovary measures 3.0 x 1.6 x 2.6 cm, with a calculated ovarian volume of 6.7 cc. Greater than 12 follicles can be seen in each ovary. No adnexal masses are seen. Other: No pathologic free abdominal or pelvic fluid. IMPRESSION: Greater than 12 follicular cysts bilaterally which can be associated with polycystic ovarian morphology. We strive to produce accurate, complete, and clear reports of imaging services. To assist us in improving patient care, this report was composed using standard report templates and voice recognition software. Therefore, it may contain abnormal punctuation, insertions and/or omissions. Occasional wrong-word or sound-alike substitutions may occur. Though we review the report and make efforts to correct it, we do recommend that the report be read carefully in proper context to recognize any text inaccuracies. Dictated by: Mathew Schuster M.D. on 05/05/2024 at 15:05 Approved by: Mathew Schuster M.D. on 05/05/2024 at 15:09
== END ==
PROVIDERS: Family Provider Family Medicine; PCP Registered Nurse; Referring Provider Nurse Practitioner Obstetrics & Gynecology; Visit Provider Nurse Practitioner Obstetrics & Gynecology
DX: N93.9 Abnormal uterine and vaginal bleeding, unspecified (principal); N83.291 Other ovarian cyst, right side
CPT/HCPCS: 76830; 76856

== ENCOUNTER → 2024-11-28 08:42 | Outpatient (CLI) | payer BC, SELFPAY | LOC: LAB 08:43 | PROVIDERS: Family Provider Family Medicine; PCP Registered Nurse; Visit Provider Chiropractor | DX: J02.9 Acute pharyngitis, unspecified (principal) | CPT/HCPCS: 87070 ==